=== PATIENT | female | born 1965 | race Caucasian/White ===

== ENCOUNTER → 2019-02-16 | Outpatient (CLI) | payer MEDICAID, SELFPAY ==
--- NOTE | 2019-02-16 09:53 | VDLE_ITS ---
Reason For Study: pain RIGHT LEFT CFV is compressible, spontaneous, phasic, CFV is compressible, spontaneous, phasic, competent and demonstrates normal competent, and demonstrates normal augmentation. augmentation. FV is compressible, spontaneous, phasic, FV is compressible, spontaneous, phasic, competent and demonstrates normal competent and demonstrates normal augmentation. augmentation. POP V is compressible, spontaneous, phasic, POP V is compressible, spontaneous, phasic, competent and demonstrates normal competent and demonstrates normal augmentation. augmentation. T/P Trunk is compressible. T/P Trunk is compressible. PTV is compressible. PTV is compressible. RT PerV is compressible. LT PerV is compressible. SFJ is incopetent. SFJ is competent. GSV is incompetent through out with max GSV is competent throughout. diameter of 0.64 x 0.77cm near the SFJ. SSV appears competent. Rouleaux flow was demonstrated in CFV, SFJ, & Roulleaux flow was demonstrated in the GSV AK. gastrocnemius veins and SSV. SSV is competent. Procedure Exam performed in department. The exam was diagnostic. A preliminary report was called and/or faxed to DR. Jacobson. Interpretation Summary 1. Bilateral no DVT or SVT. 2. Right GSV 7.7mm with reflux 3. Bilateral rouleaux noted. Ordering Physician: Zachariah Jacobson Referring Physician: NO PCP Performed By: Claudia Harvey, ELEAZAR, RVT
== END | disposition home or self-care (01) ==
PROVIDERS: Referring Provider Surgery Vascular Surgery; Visit Provider Surgery Vascular Surgery
DX: M79.89 Other specified soft tissue disorders (principal); I83.893 Varicose veins of bilateral lower extremities with other complications; M79.609 Pain in unspecified limb
CPT/HCPCS: 93970

== ENCOUNTER → 2019-04-09 | Outpatient (CLI) | payer MEDICAID, SELFPAY ==
[2015-05-30 07:56] VITALS: BMI 27.5
--- NOTE | 2019-04-09 12:48 | VDLE_ITS ---
Reason For Study: Varicose veins RIGHT CFV is compressible, spontaneous, phasic, competent and demonstrates normal augmentation. FV is compressible, spontaneous, phasic, competent and demonstrates normal augmentation. POP V is compressible, spontaneous, phasic, competent and demonstrates normal augmentation. T/P Trunk is compressible. PTV is compressible. RT PerV is compressible. SFJ is competent and measures 0.51 x 0.61 cm. GSV above the knee is occluded s/p EVLA. GSV below the knee is INCOMPETENT for greater than 0.5 seconds and measures 0.19 x 0.20 cm. SSV is competent and measures 0.15 x 0.17 cm. Procedure Exam performed in department. Interpretation Summary 1. Righ no DVT and successful GSV evlt. Ordering Physician: Zachariah Jacobson Performed By: Farnaz Andrea RVT
== END | disposition home or self-care (01) ==
LOC: CVS 12:47
PROVIDERS: Referring Provider Surgery Vascular Surgery; Visit Provider Surgery Vascular Surgery
DX: I83.893 Varicose veins of bilateral lower extremities with other complications (principal)
CPT/HCPCS: 93971

== ENCOUNTER 2019-08-26 21:40 | Emergency (ER) | payer MEDICAID, SELFPAY ==
[2019-08-26 21:40] VITALS: BP 158/103; PULSE 98; RESP 18; TEMP 36.6; O2SAT 100; BMI 27.0
--- NOTE | 2019-08-26 21:57 | RAD_ITS ---
STUDY: X-RAY - RIGHT ELBOW REASON FOR EXAM: Female, 54 years old. RIGHT ELBOW PAIN AFTER FALL TECHNIQUE: 3 view(s) of the elbow. COMPARISON: None. FINDINGS: Normal visualized humerus, radius and ulna. Normal radiocapitellar and ulnotrochlear articulations. The soft tissue structures are unremarkable. RAD/Elbow min 3 Views IMPRESSION: Normal x-ray examination of the elbow. Electronically Signed: Tung Lyon MD (Brooks) at 22:21 EST , Service support ,
--- NOTE | 2019-08-26 22:07 | RAD_ITS ---
STUDY: X-RAY CHEST REASON FOR EXAM: Female, 54 years old. CHEST PAIN AFTER FALL TECHNIQUE: PA and lateral views of the chest. COMPARISON: None. FINDINGS: The lungs are clear and expanded. There is no demonstrated pleural abnormality. Normal size heart. Normal mediastinum and marilu. Normal visualized pulmonary arteries. Normal visualized aortic arch and descending thoracic aorta. There are diffuse degenerative changes of the visualized thoracic spine. Normal visualized ribs, clavicles, and shoulders. There is no demonstrated abnormality of the visualized soft tissue structures of the upper abdomen. RAD/Chest PA and Lateral IMPRESSION: No acute cardiopulmonary process. Electronically Signed: Tung Lyon MD (Brooks) at 22:22 EST , Service support ,
--- NOTE | 2019-08-26 22:17 | ED.VIS.INJ ---
History of Present Illness Chief Complaint: Upper Extremity Injury Detail of Chief Complaint: Still complains of chest pain and shortness of breath Informant: Patient Onset: Days - Patient has 2 separate falls from ladder approximately 4 to 5 feet off the ground. First time she fell she injured her right upper extremity complains of pain in the right elbow. She denies pain in her right shoulder, wrist, hand or fingers. She fell a second time injuring her chest/back. She states it hurts to breathe and she feels short of breath. Mechanism/Context: Fall Quality of Pain: Dull, Aching Location: Right elbow and right anterior chest and right upper back Current Severity: Mild Maximum Severity: Moderate Worsened by: Use of upper extremity and breathing Relieved by: Nothing Associated Symptoms: Negative for: Parasthesias, Weakness, Loss of function, Inability to ambulate, Loss of consciousness, Amnesia Length of loss of consciousness: Not applicable Narrative: Patient is a 54-year-old [id number] woman who presents because of fall. She sustained injury to her right elbow and right anterior and right upper back. She denies head trauma. Denies loss conscious. She denies paresthesia, anesthesia or motor weakness. She denies hematuria. She denies difficulty walking. She denies problems with balance. She is not on an anticoagulant. Tetanus Immunization: 5-10 years Prior similar symptoms: No Recent Illness/Hospitalization: No - Past Medical History (1) No significant past medical history Status: Acute Past Medical History - Allergies and Home Meds Allergies/Adverse Reactions: Allergies Penicillins Allergy (Verified 08/26/19 22:24) Hives gabapentin Adverse Reaction (Verified 08/26/19 22:24) Vomiting Primary Care Physician: Care Physician,No Primary [Primary Care Provider] - Prior records reviewed: Yes Surgical History: noncontributory Lives: Alone Smoking Status: Heavy Smoker (>10/day) Alcohol: Rare Drugs: None Review of Systems General: Denies: Chills, Fever, Sweats Eyes: Denies: Visual changes - bilaterally, Blurred Vision - bilaterally ENT: Reports: - - Denies decreased hearing or ringing in her ears.. Denies: Bilateral ear pain, Rhinorrhea, Sore throat Cardiovascular: Reports: Chest pain. Denies: Palpitations, Heart racing Respiratory: Reports: Dyspnea. Denies: Cough, Sputum, Dyspnea on exertion Gastrointestinal: Denies: Abdominal pain, Nausea, Vomiting, Diarrhea, Melena, Hematochezia Genitourinary: Denies: Dysuria, Hematuria, Frequency Musculoskeletal: Reports: Back pain, Extremity Pain. Denies: Myalgias, Arthralgias, Neck pain, Swelling Skin: Denies: Rash, Wounds Neurological: Denies: Headache, Weakness, Parasthesia, Numbness Hematologic: Denies: Easy bruising, Easy bleeding Allergy: Denies: Uticaria, Swelling of the mouth Physical Exam Vital Signs/Narrative: Vital Signs Temp Pulse Resp BP Pulse Ox 08/26/19 21:40 98 F 98 18 158/103 H 100 Inital Vital Signs reviewed: Yes General: Well nourished, Well developed Head: Normocephalic, Atraumatic Eyes: Perrl, EOMI ENT: TM's clear, No hemotympanum or drainage, No trauma Neck: Nontender, Full ROM Cardiovascular: Regular rate, Regular rhythm, No murmurs Respiratory: No distress, CTA bilaterally, Chest tenderness - Pain to palpation right upper ribs anteriorly. There is no crepitus or subcutaneous air. Breath sounds are diminished on the right. Abdomen: Soft, Nontender, Nondistended, Normal bowel sounds, No masses Back: Nontender. Negative for: CVA Tenderness - Right, CVA Tenderness - Left Extremeties: Is no pain the patient over the clavicle or AC joint. There is no pain the patient over the proximal humerus. There is pain the patient over the right elbow and specifically the lateral epicondyle and olecranon process. There is no pain the patient over the radial head. There is no pain the patient of the distal radius ulna, carpal bones, metacarpals or phalanges. Axillary, median, radial and ulnar function intact. Radial pulses palpable. Skin: Normal color, No rash, No Trauma. Negative for: Cyanosis, Diaphoresis, Jaundice Neurological: Alert, Oriented x3, Cranial nerves II-XII grossly intact, Normal Strength, Normal Sensation, Normal DTR, Normal Gait Psychological: Normal affect - Glascow Coma Scale Eye Opening: Spontaneous Motor: Obeys Commands Verbal: Oriented Coma Scale Total: 15 Diagnostic/Tx/Re-eval Chest X-Ray - ED: 2 View, Read by ED Physician, Normal, Heart, Lungs, Mediastinum, Bony Structures, No Acute Disease, - - No evidence of pneumothorax or hemothorax. Three-view x-ray of the right elbow was obtained interpreted by me as negative. There is no fracture, subluxation dislocation. There is no anterior posterior fat pad noted. - Medical Decision Making X-rays were obtained to evaluate for elbow fracture and chest x-ray was obtained to assess for pneumothorax, hemothorax and obvious fractured ribs. X-rays are unremarkable. Should be treated with NSAIDs. ED Disposition - Plan for ED Patient: Disposition: Home or Assisted Living Diagnosis: Contusion of left elbow, initial encounter, Contusion of chest wall with intact skin Instructions: CONTUSION, Upper Extremity, Chest Wall Contusion Prescriptions: Naproxen [Naprosyn] 500 mg PO BID #14 tab Transmission Status: Pending to [facility] Referrals: Care Physician,No Primary [Primary Care Provider] - 1 Week if not improving Additional Instructions: Follow-up with the doctor or primary care provider you are assigned to by Medicaid. Apply ice to areas of discomfort.
[2019-08-26] MEDS: Naproxen 500 MG Tablet PO (22:38)
[2019-08-26 22:42] VITALS: BP 148/102; PULSE 91; RESP 16; O2SAT 97
== END 2019-08-26 22:43 | disposition home or self-care (01) ==
PROVIDERS: Emergency Provider Emergency Medicine
DX: S50.01XA Contusion of right elbow, initial encounter (principal); S20.211A Contusion of right front wall of thorax, initial encounter; W11.XXXA Fall on and from ladder, initial encounter; Y93.9 Activity, unspecified; F17.200 Nicotine dependence, unspecified, uncomplicated
CPT/HCPCS: 71046; 73080; 99282

== ENCOUNTER → 2020-04-07 17:48 | Outpatient (CLI) | payer MEDICAID, SELFPAY | DX: Z20.828 Contact with and (suspected) exposure to other viral communicable diseases (principal) | CPT/HCPCS: 87635; 94799; U0003 ==

== ENCOUNTER 2021-09-18 06:48 | Emergency (ER) | payer MEDICAID, SELFPAY ==
[2021-09-18 06:49] VITALS: PULSE 119; RESP 18; TEMP 36.1; O2SAT 98; BMI 28.5
--- NOTE | 2021-09-18 06:51 | RAD_ITS ---
STUDY: X-RAY - RIGHT ELBOW REASON FOR EXAM: Female, 56 years old. Injury/Pain TECHNIQUE: 3 view(s) of the elbow. COMPARISON: 08/26/2019 FINDINGS: Normal visualized humerus, radius and ulna. Normal radiocapitellar and ulnotrochlear articulations. The soft tissue structures are unremarkable. RAD/Elbow min 3 Views IMPRESSION: Negative x-ray examination of the elbow. No interval change. Electronically Signed: Matt Salazar MD at 7:28 EST Tel , Service support ,
--- NOTE | 2021-09-18 06:52 | EX.ED.UPPERE ---
HPI History of Present Illness Chief Complaint: Upper Extremity Injury Informant: patient Onset/Context/Timing Onset: Days Context: Sudden Onset Timing: Continuous Quality of Pain: Dull and Aching Location: Right elbow Current Severity: Mild Maximum Severity: Severe Worsened by: Movement and palpation Relieved by: Rest Associated Symptoms Associated Symptoms: Negative for Parasthesia, Weakness and Loss of Funtion Narrative Narrative: Patient is a 56-year-old [id number] woman who presents with injury to her right elbow after fall. She landed on the elbow. She localizes pain over the lateral epicondyle. There is also soft tissue swelling noted. She denies paresthesia, anesthesia or motor weakness. She denies prior injury to the right elbow or shoulder. Patient appears slightly uncomfortable. She is noted to be slightly sweaty. She states she walked to the ER. Tetanus Immunization: >10 years Prior similar symptoms: No Recent Illness/Hospitalization: No PFSH PFS Medical History Colitis Health care maintenance Hypertension Tobacco abuse counseling Home Medications cyclobenzaprine 10 mg tablet 10 mg PO HS 06/20/21 [History Last Taken Unknown] naproxen 500 mg PO BID #10 tab 09/18/21 [Rx Last Taken Unknown] Allergy/AdvReac Type Severity Reaction Status Date / Time Penicillins Allergy Hives Verified 09/18/21 06:54 gabapentin AdvReac Vomiting Verified 09/18/21 06:54 Surgical History History of back surgery Social History (Updated 09/18/21 @ 06:[address] Claus Lange MD) household members: none Smoking Status: Heavy Smoker (>10/day) substance use type: does not use ROS ROS ED Constitutional Constitutional ED: Denies chills, fever(s), subjective or sweats Eyes Eyes: Denies blurry vision, change in vision or diplopia Cardiovascular Cardiovascular: Denies chest pain, orthopnea, palpitations or paroxysmal nocturnal dyspnea Respiratory/Chest Respiratory/Chest: Denies dyspnea, dyspnea on exertion, orthopnea or paroxysmal nocturnal dyspnea Gastrointestinal Gastrointestinal: Denies abdominal pain, nausea or vomiting Musculoskeletal Musculoskeletal: Reports other Details: Right elbow pain ; Denies back pain, myalgias or neck pain Integumentary Denies Abrasions or rash Neurologic Neurologic: Denies paresthesias Hematologic/Lymphatic Hematologic/Lymphatic: Denies easy bleeding or easy bruising EXAM Physical Exam Const Vital Signs: 09/18/21 06:49 Temperature 97.0 F L Temperature Source Temporal Pulse Rate 119 H Respiratory Rate 18 Pulse Ox 98 Oxygen Delivery Method Room Air Positive well nourished and well developed General Appearance ED: well developed; Negative for cyanotic, diaphoretic or NAD HEENT HEENT Narrative: Ears normal. Nares patent. normocephalic and atraumatic; Negative for tenderness Eyes PERRL and EOMs intact bilaterally Eyes Narrative: There is no subconjunctival hemorrhage noted. Neck full ROM and supple General: tenderness Chest Wall inspection of chest normal and palpation of chest normal Chest Narrative: There is no pain the patient over the clavicle or AC joint. Patient complains of minimal discomfort over the proximal right arm. Resp normal respiratory effort and clear to auscultation bilaterally Cardio regular rate, regular rhythm, S1 normal heart sound, S2 normal heart sound and no murmurs Back/Spine Cervical Spine: cervical spine tenderness Thoracic Spine / Upper Back: thoracic spinal tenderness Extremity Negative for normal to inspection Extremity Narrative: Patient is able to AB duct past 90 degrees. Axillary, median, radial and ulnar function intact. There is pain ovation over the lateral epicondyle. There is no pain ovation of the radial head. There is no pain the patient over the lateral epicondyle. She has no discomfort over the olecranon process. There is no pain the patient over the distal radius or ulna. There is no pain the patient with carpal bones, metacarpal bones or phalanges. Negative drop test. General Extremety ED: Negative for edema General Extremity: Negative for edema Neuro oriented x3, CN's II-XII intact bilaterally and moves all extremities Sensorium / Orientation: alert Psych mental status grossly normal Skin Lesions: no lesions Rashes: no rashes Trauma: no lacerations or abrasions; Negative for abrasion MDM MDM MDM Narrative Medical decision making narrative: With pain to palpation over the lateral epicondyle Limited range of motion in swelling noted x-ray was obtained to evaluate for contusion versus fracture. Three-view x-ray of the elbow reveals no evidence of fracture. There is mild degenerative changes with osteophytes noted lateral and medial epicondyle. Negative anterior and posterior fat pad. The x-rays were interpreted by me at 0713. Discharge Plan Triage Chief Complaint: Upper Extremity Injury ED Provider: Claus Lange Dx/Rx/DC Orders Clinical Impression: Injury due to fall, Contusion of right elbow, initial encounter Instructions: ED Contusion, Elbow Prescriptions: New naproxen 500 MG tablet 500 mg PO BID Qty: 10 RF: 0 No Action cyclobenzaprine 10 mg tablet 10 mg PO HS RF: 0 Primary Care Provider: Care Physician,No Primary Referrals: Care Physician,No Primary [Primary Care Provider] - Doctor,Your [STAFF PHYSICIAN] - 10-14 Days if not better Disposition Disposition: Home, Self Care
[2021-09-18 06:53] VITALS: BP 115/95
[2021-09-18] MEDS: HYDROcodone Bitartrate/Apap 5/325 Tablet PO (06:55)
[2021-09-18] MEDS: Naproxen 250 MG Tablet 500 MG PO (07:32)
[2021-09-18 07:35] VITALS: PULSE 108; RESP 17; O2SAT 98
== END 2021-09-18 07:36 | disposition home or self-care (01) ==
LOC: ED 07:19
PROVIDERS: Emergency Provider Emergency Medicine; Visit Provider Emergency Medicine
DX: S50.01XA Contusion of right elbow, initial encounter (principal); W19.XXXA Unspecified fall, initial encounter; F17.200 Nicotine dependence, unspecified, uncomplicated; I10 Essential (primary) hypertension; Z79.899 Other long term (current) drug therapy; Y93.9 Activity, unspecified; Y92.9 Unspecified place or not applicable
CPT/HCPCS: 73080; 99283

== ENCOUNTER 2021-10-16 16:34 | Outpatient (CLI) | payer MEDICAID, SELFPAY ==
[2021-10-16 17:13] LABS: Amphetamine Urine VISTA NEGATIVE (<1000 ng/mL); Barbiturate Urine VISTA NEGATIVE (< 200 ng/mL); Benzodiazepine Urine VISTA NEGATIVE (< 200 ng/mL); Cocaine Urine VISTA NEGATIVE (< 300 ng/mL); Ecstacy Urine VISTA NEGATIVE (< 500 ng/mL); Methadone Urine VISTA NEGATIVE (< 300 ng/mL); PCP Urine VISTA NEGATIVE (< 25 ng/mL); THC Urine VISTA NEGATIVE (< 50 ng/mL); Vista UDS pH Range 6
== END 2021-10-16 23:59 | disposition home or self-care (01) ==
LOC: LABSPEC 16:35 → LAB 10-17 06:57
PROVIDERS: Referring Provider Anesthesiology Pain Medicine; Visit Provider Anesthesiology Pain Medicine
DX: F11.20 Opioid dependence, uncomplicated (principal)
CPT/HCPCS: 80307

== ENCOUNTER 2021-10-30 07:30 | Outpatient (CLI) | payer MEDICAID, SELFPAY ==
--- NOTE | 2021-10-30 08:47 | NEURO_ITS ---
NCS and/or EMG Patient Report Ordering Doctor: Sammy Bowie DATE OF SERVICE: 10/30/21 Indication: Right sided neck and shoulder pain. Constant aching quality with superimposed, intermittent shooting pain. Symptoms were exacerbated by a fall onto the right elbow in September of this year. Evaluate for cervical radiculopathy. Findings: Nerve conduction studies were performed in the right upper extremity. The right median motor study recording the abductor pollicis brevis showed a normal amplitude, mildly prolonged distal latency and normal conduction velocity. The right ulnar motor study recording the abductor digiti minimi showed a normal amplitude, normal distal latency and normal conduction velocity. No conduction block or focal slowing was present across the elbow. The right median sensory response recording digit two showed a borderline amplitude, normal latency and normal conduction velocity. The right ulnar sensory response recording digit five showed a normal amplitude, latency and conduction velocity. The right radial sensory response recording over the extensor snuff box showed a normal amplitude, latency and conduction velocity. Right median-ulnar lumbrical / interosseous motor latencies showed a prolonged median latency compared to the ulnar. Needle EMG of the right upper extremity and cervical paraspinal muscles was performed. No active denervation was present in any of the examined muscles. Motor units were large amplitude and long duration with normal recruitment in th e triceps and flexor carpi radialis muscles. In the abductor pollicis brevis, mild polyphasia was present, but the motor units were otherwise unremarkable. All other muscles demonstrated normal motor unit morphology, activation and recruitment patterns. Impression: This is an abnormal study. There is electrophysiologic evidence consistent with a chronic, right C7 radiculopathy. There is no active denervation to suggest ongoing motor axon loss. In addition, there was mild slowing of the median nerve across the wrist. This should be interpreted with caution as these findings can persist even after adequate decompression of the carpal tunnel. Clinical correlation for symptoms of persistent median nerve entrapment is recommended. Matt Rubin D.O. Multi Select Codes Neurology Neurology Interp Codes: 79367-35 Musc test done w/n test comp (interp) and 41975-94 Nrv cndj test 7-8 studies (interp)
== END 2021-10-30 23:59 | disposition home or self-care (01) ==
LOC: PSN 07:33
PROVIDERS: PCP Internal Medicine; Referring Provider Orthopaedic Surgery; Visit Provider Orthopaedic Surgery
DX: M48.02 Spinal stenosis, cervical region (principal); M47.26 Other spondylosis with radiculopathy, lumbar region
CPT/HCPCS: 95886; 95910

== ENCOUNTER 2021-11-13 17:26 | Emergency (ER) | payer MEDICAID, SELFPAY ==
[2021-11-13 17:27] VITALS: BP 163/94; PULSE 101; RESP 16; TEMP 36.3; O2SAT 98; BMI 29.2
--- NOTE | 2021-11-13 17:37 | EDS_ITS ---
HPI History of Present Illness Chief Complaint: Laceration Informant: patient Narrative Narrative: Patient had a branch fall down and cut her dorsal right proximal forearm. No active bleeding. Her last tetanus shot was 1 to 2 years ago. It does not hurt to move. No other injury. Nothing really makes it better or worse. [facility] Medical History Colitis Health care maintenance Hypertension Tobacco abuse counseling Home Medications cyclobenzaprine 10 mg tablet 10 mg PO HS 06/20/21 [History Last Taken Unknown] naproxen 500 mg PO BID #10 tab 09/18/21 [Rx Last Taken Unknown] Allergy/AdvReac Type Severity Reaction Status Date / Time Penicillins Allergy Hives Verified 11/13/21 17:28 gabapentin AdvReac Vomiting Verified 11/13/21 17:28 Surgical History History of back surgery Social History household members: none Smoking Status: Heavy Smoker (>10/day) substance use type: does not use ROS ROS ED Cardiovascular Cardiovascular: Denies chest pain or palpitations Gastrointestinal Gastrointestinal: Denies nausea or vomiting Musculoskeletal Musculoskeletal: Reports other Details: See history of present illness ; Denies back pain or neck pain Integumentary Reports other Details: Laceration right forearm. See history of present illness. Neurologic Neurologic: Denies paresthesias or weakness Hematologic/Lymphatic Hematologic/Lymphatic: Reports other Details: No anticoagulation. ; Denies easy bleeding or easy bruising EXAM Physical Exam Const Vital Signs: 11/13/21 17:27 Temperature 97.4 F L Temperature Source Temporal Pulse Rate 101 H Respiratory Rate 16 Blood Pressure 163/94 H Blood Pressure Mean 117 Pulse Ox 98 Oxygen Delivery Method Room Air Positive well nourished and well developed General Appearance ED: well developed and NAD HEENT atraumatic Resp normal respiratory effort Cardio regular rhythm Rate: regular rate GI normal to inspection, nondistended, normoactive bowel sounds and non-tender Palpation: soft Extremity Extremity Narrative: There is a 3 cm laceration on dorsal right proximal forearm. No active bleeding. She has excellent strength both [employer] strength as well as finger extension and wrist flexion extension distally. She states she has some nerve damage in that arm already but is not showing any signs of notable dysfunction on exam. Neuro no focal motor deficits and no sensory deficits noted Sensorium / Orientation: alert Skin Skin Narrative: 3 cm laceration right dorsal forearm as above. PROC Procedures Lacerations Right dorsal forearm: Length: 3 m Depth: Sub Q Shape: Flap Prep: Sterile Conditions and Shure-Clens Laceration repair: Irrigated, Lidocaine, Local, Skin sutures and Wound explored Irrigated (ml): 150 Number of Sutures/[place]: 4 Suture Information: Ethilon and 4-0 MDM MDM MDM Narrative Medical decision making narrative: Procedure: Suture laceration: The area was sterilely prepped draped. It was anesthetized with 6 cc of 1% lidocaine locally with good anesthesia. The area was scrubbed again with Mitzi- Jean all around and draped. The wound was scrubbed and irrigated. It was probed with finger and instruments. I find no foreign material in there. It was copiously irrigated again. It was then sutured with good cosmesis and hemostasis with 4 interrupted 4-0 Ethilon sutures. She tolerated this well. We explained reasons to return as well as timing for suture removal. Discharge Plan Triage Chief Complaint: Laceration ED Provider: Marc Giron Dx/Rx/DC Orders Clinical Impression: Laceration of forearm, right Instructions: ED Laceration: All Closures Prescriptions: No Action cyclobenzaprine 10 mg tablet 10 mg PO HS RF: 0 naproxen 500 MG tablet 500 mg PO BID Qty: 10 RF: 0 Primary Care Provider: Feliciano Jacobson Referrals: Felicaino Jacobson MD [Primary Care Provider] - 10-14 Days suture removal Disposition Disposition: Home, Self Care
[2021-11-13] MEDS: Lidocaine 1% (20 ml mdv) 20 ML Vial INFILT (17:46)
== END 2021-11-13 18:18 | disposition home or self-care (01) ==
PROVIDERS: Emergency Provider Emergency Medicine; PCP Internal Medicine; Visit Provider Emergency Medicine
DX: S51.811A Laceration without foreign body of right forearm, initial encounter (principal); F17.200 Nicotine dependence, unspecified, uncomplicated; X58.XXXA Exposure to other specified factors, initial encounter
CPT/HCPCS: 12002; 99283

== ENCOUNTER 2021-11-20 15:58 | Outpatient (CLI) | payer MEDICAID, SELFPAY ==
[2021-11-20 16:32] LABS: Absolute Lymphocyte Count 2.18 X10^3/uL (0.83-4.51); Absolute Neutrophil Count 2.2 X10^3/uL (2.0-7.7); Basophil# 0.03 X10^3/uL; Basophil% 0.6 % (0-1); Eosinophil# 0.27 X10^3/uL; Eosinophils% 5.3 % (0-5); Hematocrit 39.3 % (37-47); Hemoglobin 12.9 g/dL (12.0-15.0); Lymphocyte # 2.18 X10^3/ul (0.83-4.51); Lymphocyte % 42.7 % (19-41); Mean Corp Hgb Conc 32.8 g/dL (32-36); Mean Corpuscular Hgb 31.3 pg (27.0-32.0); Mean Corpuscular Volume 95.4 fL (81-99); Mean Platelet Vol. 10.2 fl (6.2-12.0); Monocyte# 0.38 X10^3/uL; Monocyte% 7.5 % (0-10); NRBC Flagged by Analyzer 0 % (0-5); Neutrophil # 2.23 X10^3/uL (2.7-7.7); Neutrophil % 43.7 % (47-70); Platelet Count 204 K/mm3 (150-450); RBC Distribution Width CV 12.9 % (11.6-14.6); RBC Distribution Width SD 45.6 fl (35.1-43.9); Red Blood Count 4.12 M/mm3 (4.2-5.4); White Blood Count 5.1 K/mm3 (4.4-11.0)
[2021-11-20 16:42] LABS: ALB/GLOB Ratio 1.1 RATIO (0.9-2.4); AST(SGOT) 18 U/L (15-37); Alanine Aminotransfer ALT/SGPT 28 U/L (13-56); Alkaline Phosphatase 90 U/L (45-117); Anion Gap 4 (5-15); BUN 17 mg/dL (7-18); BUN/Creat Ratio 19.1 RATIO (10-20); Calcium,Total 9.1 mg/dL (8.5-10.1); Chloride 105 mmol/L (98-107); Cholesterol 211 mg/dL (200); Creatinine, Serum 0.89 mg/dL (0.55-1.02); EST Glomerular Filtration Rate 70 mL/min (>60); Est Glom Filt Rate - Afr Amer 84 mL/min (>60); Globulin 3.5 g/dL (2.2-4.2); Glucose 94 mg/dL (74-106); High Density Lipoprotein 61 mg/dL; Potassium 3.9 mmol/L (3.5-5.1); Protein, Total 7.5 g/dL (6.4-8.2); Sodium Level 138 mmol/L (136-145); Triglycerides 190 mg/dL; Very Low Density Lipoprotein 38 mg/dL (5-40)
== END 2021-11-20 23:59 | disposition home or self-care (01) ==
LOC: BIMLAB 15:59
PROVIDERS: PCP Internal Medicine; Referring Provider Internal Medicine; Visit Provider Internal Medicine
DX: I10 Essential (primary) hypertension (principal)
CPT/HCPCS: 36415; 80053; 80061; 85025

== ENCOUNTER 2022-03-04 00:12 | Emergency (ER) | payer MEDICAID, SELFPAY ==
[2022-03-04 00:13] VITALS: BP 141/83; PULSE 103; RESP 20; TEMP 36.4; O2SAT 98; BMI 28.8
[2022-03-04] MEDS: Doxycycline 100 MG CAPSULE PO (00:57)
[2022-03-04] MEDS: Nystatin Powder 15gm Bottle 1 APPLIC TOPICAL (00:57)
--- NOTE | 2022-03-04 01:28 | EDS_ITS ---
HPI History of Present Illness Chief Complaint: Rash Narrative Narrative: This is a 56-year-old female presenting with rash under her bilateral breasts. She states has been there for couple of days. She spent a lot of time outside gardening over the last couple of days and states he has been hot and sweaty. She is noticed that the rash is worsening. She tried a salve which did not help. She is noticed that the redness is spreading up from the intertriginous areas up over the bottom portion of the breast. No systemic signs or symptoms. [facility] Medical History Chronic back pain Colitis Health care maintenance Hypertension Right hip pain Tobacco abuse counseling Home Medications ibuprofen 600 mg tablet 600 mg PO TID PRN pain #180 tabs 11/20/21 [Rx Last Taken Unknown] amlodipine 10 mg tablet 10 mg PO DAILY #30 tabs 12/27/21 [Rx Last Taken Unknown] acetaminophen 500 mg tablet 1,000 mg PO Q8H PRN pain 03/04/22 [History Last Taken Unknown] cyclobenzaprine 10 mg tablet 10 mg PO QHS sleep 03/04/22 [History Last Taken Unknown] doxycycline hyclate 100 mg capsule 100 mg PO BID #13 caps 03/04/22 [Rx Last Taken Unknown] nystatin 100,000 unit/gram topical powder 1 applic topical DAILY #30 grams 03/04/22 [Rx Last Taken Unknown] Allergy/AdvReac Type Severity Reaction Status Date / Time Penicillins Allergy Hives Verified 11/20/21 15:23 gabapentin AdvReac Vomiting Verified 11/20/21 15:23 Surgical History History of back surgery Social History household members: none Smoking Status: Heavy Smoker (>10/day) substance use type: does not use ROS ROS ED Constitutional Constitutional ED: Denies chills or fever(s) Eyes Eyes: Denies change in vision ENT ENT ED: Denies rhinorrhea or sore throat Cardiovascular Cardiovascular: Denies chest pain or palpitations Respiratory/Chest Respiratory/Chest: Denies cough or dyspnea Gastrointestinal Gastrointestinal: Denies abdominal pain or constipation Genitourinary Genitourinary ED: Denies dysuria or hematuria Musculoskeletal Musculoskeletal: Denies arthralgias or back pain Integumentary Reports rash Neurologic Neurologic: Denies headache(s) Psychiatric Psychiatric: Denies anxiety or depression EXAM Physical Exam Const Vital Signs: 03/04/22 00:13 Temperature 97.6 F L Temperature Source Oral Pulse Rate 103 H Respiratory Rate 20 H Blood Pressure 141/83 H Blood Pressure Mean 102 Pulse Ox 98 Oxygen Delivery Method Room Air Positive well nourished General Appearance ED: NAD HEENT Reports moist mucous membranes Eyes PERRL Chest Wall Chest Narrative: Under the bilateral breast there is erythema in the intertriginous areas. There is some redness that extends up the underside of the breast almost to the areola. No crepitance is palpated. Resp normal respiratory effort Cardio regular rate and regular rhythm Psych mental status grossly normal Skin Skin Narrative: As documented above. MDM MDM MDM Narrative Medical decision making narrative: Patient with erythema in the intertriginous areas after being outside in the heat and sweating for the last couple of days. I believe this is can be successfully treated with nystatin cream for the most part in intertriginous areas but because the redness is extending up over the underside of the breast and near the areola I did put her on an antibiotic as well to cover her for cellulitis. Patient was given the first dose of doxycycline in the ED. He is given wound care instructions verbally. Return precautions discussed. Impression: 1. Cellulitis Discharge Plan Triage Chief Complaint: Rash ED Provider: Donta Velarde Dx/Rx/DC Orders Instructions: ED Ceci Skin Infection (Adult), ED Cellulitis Prescriptions: New doxycycline hyclate 100 mg capsule 100 mg PO BID Qty: 13 0RF nystatin 100,000 unit/gram powder 1 applic topical DAILY Qty: 30 0RF No Action ibuprofen 600 mg tablet 600 mg PO TID PRN (Reason: pain) Qty: 180 2RF Rx Instructions: Take with food and lots of water cyclobenzaprine 10 mg tablet 10 mg PO QHS acetaminophen 500 mg tablet 1,000 mg PO Q8H PRN (Reason: pain) amlodipine 10 mg tablet 10 mg PO DAILY Qty: 30 3RF Primary Care Provider: Feliciano Jacobson Referrals: Feliciano Jacobson MD [Primary Care Provider] - Disposition Disposition: Home, Self Care Discharge Date/Time: 03/04/22 01:01
== END 2022-03-04 01:01 | disposition home or self-care (01) ==
PROVIDERS: Emergency Provider Student in an Organized Health Care Education/Training Program; PCP Internal Medicine; Visit Provider Student in an Organized Health Care Education/Training Program
DX: N61.0 Mastitis without abscess (principal); R21 Rash and other nonspecific skin eruption; F17.200 Nicotine dependence, unspecified, uncomplicated; Z79.899 Other long term (current) drug therapy
CPT/HCPCS: 99283

== ENCOUNTER 2022-05-12 01:11 | Emergency (ER) | payer MEDICAID, SELFPAY ==
[2022-05-12 01:13] VITALS: BP 136/88; PULSE 107; RESP 20; TEMP 36.6; O2SAT 98; BMI 28.8
--- NOTE | 2022-05-12 01:39 | EDS_ITS ---
HPI History of Present Illness Chief Complaint: Lower Extremity Injury Informant: patient Onset/Context/Timing Onset: Days (6) Context: Gradual Onset Timing: Continuous Quality: swelling, soreness, tingling Location: both lower legs Current Severity: Moderate Maximum Severity: Moderate Worsened by: walking/being on feet Relieved by: nothing Narrative Narrative: Patient presents Saturday night 1:30 AM for swelling in both legs for the past 6 days. She denies any recent travel out of the area, immobilization, hospitalization, or surgery. She has been urinating normally. She does not have a history of kidney or liver problems. She has some chronic back issues that required surgery for ruptured disc, she denies any new or acute symptoms there. She does have peripheral neuropathy that is chronic, and fibromyalgia. She states that her legs been swollen they become a little more sore than usual and she points to the calves bilaterally and was concerned maybe she has blood clots. She has never had a DVT or PE before. She denies any orthopnea, dyspnea on exertion, palpitations, chest pain, or any other systemic symptoms. [facility] Medical History Cervical radiculopathy Chronic back pain Chronic neck pain Colitis Health care maintenance Hypertension Right hip pain Tobacco abuse counseling Home Medications acetaminophen 500 mg tablet 1,000 mg PO Q8H PRN pain 03/04/22 [History Last Taken Unknown] cyclobenzaprine 10 mg tablet 10 mg PO QHS PRN muscle spasm #60 tabs 04/20/22 [Rx Last Taken Unknown] ibuprofen 600 mg tablet 600 mg PO TID PRN pain #180 tabs 04/20/22 [Rx Last Taken Unknown] lisinopril 20 mg tablet 20 mg PO DAILY #30 tabs 05/12/22 [Rx Last Taken Unknown] Allergy/AdvReac Type Severity Reaction Status Date / Time Penicillins Allergy Hives Verified 05/12/22 01:13 gabapentin AdvReac Vomiting Verified 05/12/22 01:13 Surgical History History of back surgery Social History household members: none Smoking Status: Heavy Smoker (>10/day) alcohol intake: current alcohol intake frequency: holidays/special occasions only substance use type: does not use ROS ROS ED Constitutional Constitutional ED: Denies chills or fever(s) Eyes Eyes: Denies change in vision or diplopia ENT ENT ED: Denies rhinorrhea or sore throat Cardiovascular Cardiovascular: Reports edema; Denies chest pain or palpitations Respiratory/Chest Respiratory/Chest: Denies cough or dyspnea Gastrointestinal Gastrointestinal: Denies abdominal pain, diarrhea, nausea or vomiting Genitourinary Genitourinary ED: Denies dysuria or hematuria Musculoskeletal Musculoskeletal: Denies back pain or neck pain Integumentary Denies abscess or rash Neurologic Neurologic: Denies headache(s), paresthesias or weakness Psychiatric Psychiatric: Denies anxiety or suicidal thoughts EXAM Physical Exam Const Vital Signs: 05/12/22 01:13 Temperature 97.8 F Temperature Source Temporal Pulse Rate 107 H Respiratory Rate 20 H Blood Pressure 136/88 H Blood Pressure Mean 104 Pulse Ox 98 Oxygen Delivery Method Room Air Positive well nourished and well developed General Appearance ED: well developed and NAD HEENT Reports moist mucous membranes normocephalic and atraumatic Eyes PERRL and EOMs intact bilaterally Neck full ROM and supple Resp normal respiratory effort Back/Spine no CVA tenderness General Back: other FROM Extremity normal to inspection Extremity Narrative: Mild nonpitting edema, if present at all; difficult to appreciate. Couple venous varicosities superficially that are nontender and nonthrombosed. General Extremety ED: Negative for pulses abnormal or tenderness General Extremity: Negative for pulses abnormal Neuro oriented x3, CN's II-XII intact bilaterally and no sensory deficits noted Sensorium / Orientation: awake and alert Motor Exam: strength 5/5 throughout Psych mental status grossly normal Skin no rashes or lesions noted and no wounds MDM MDM MDM Narrative Medical decision making narrative: Negative Homans bilaterally, no palpable cords or calf tenderness, she states they appear swollen compared to normal although it is difficult to appreciate objectively which I discussed with her and she understands. She is on amlodipine for blood pressure and states she has only been on that for the past 6 months and she needed the surgery in her lumbar spine. Since this could cause edema in her legs and she is on her feet a lot, I think it would be reasonable to discontinue this and replace it with lisinopril for now, her blood pressure is stable here, I will discharge her on 20 mg lisinopril and have her follow-up, if things get worse despite this she is welcome to return for reevaluation or further testing but she is comfortable with that plan. I do not think she needs testing for DVT since it is bilaterally simultaneously and she has no risk factors. Discharge Plan Triage Chief Complaint: Lower Extremity Injury ED Provider: Viral Ackerman Dx/Rx/DC Orders Clinical Impression: Bilateral edema of lower extremity Instructions: ED Peripheral Edema, Bilateral Prescriptions: New lisinopril 20 mg tablet 20 mg PO DAILY Qty: 30 0RF Continued acetaminophen 500 mg tablet 1,000 mg PO Q8H PRN (Reason: pain) cyclobenzaprine 10 mg tablet 10 mg PO QHS PRN (Reason: muscle spasm) Qty: 60 0RF ibuprofen 600 mg tablet 600 mg PO TID PRN (Reason: pain) Qty: 180 0RF Rx Instructions: Take with food and lots of water Discontinued amlodipine 10 mg tablet 10 mg PO DAILY Qty: 30 0RF Primary Care Provider: Feliciano Jacobson Referrals: Feliciano Jacobson MD [Primary Care Provider] - Disposition Disposition: Home, Self Care
== END 2022-05-12 01:50 | disposition home or self-care (01) ==
LOC: ED 01:48
PROVIDERS: Emergency Provider Emergency Medicine; PCP Internal Medicine; Visit Provider Emergency Medicine
DX: R60.0 Localized edema (principal); F17.200 Nicotine dependence, unspecified, uncomplicated; Z79.899 Other long term (current) drug therapy
CPT/HCPCS: 99282

== ENCOUNTER 2023-07-17 18:04 | Emergency (ER) | payer MEDICAID, SELFPAY ==
[2023-07-17 18:06] VITALS: BP 145/93; PULSE 99; RESP 22; TEMP 36.4; O2SAT 99
--- NOTE | 2023-07-17 18:40 | RAD_ITS ---
STUDY: X-RAY - RIGHT TIBIA AND FIBULA REASON FOR EXAM: Female, 58 years old. calf/kay pain TECHNIQUE: 2 view(s) of the tibia and fibula were obtained. COMPARISON: None. FINDINGS: Normal visualized tibia. Normal visualized fibula. The soft tissue structures are unremarkable. RAD/Tibia & Fibula 2 Views IMPRESSION: Normal x-ray examination of the tibia and fibula. Electronically Signed: Sammy Couch MD at 19:01 EST ,
--- NOTE | 2023-07-17 19:05 | ED.RN ---
Pt asks this RN for pain medicine while waiting in triage area for ED room availability. This RN explained pain meds couldn't be given until MD ordered which typically didn't happen until evaluated by MD. Pt had normal xrays with no fractures noted. Pt becomes angry, cursing and yelling loudly. This RN asks pt to keep language appropriate as she was surrounded by other pt's who were alss waiting for ED rooms. This RN offered emotional support, explained she would be roomed as soon as there was availability. supervisor packing aware.
== END 2023-07-17 19:20 | disposition left against medical advice (07) ==
LOC: ED 19:23
PROVIDERS: Emergency Provider Emergency Medicine; PCP Internal Medicine; Visit Provider Emergency Medicine
DX: Z53.21 Procedure and treatment not carried out due to patient leaving prior to being seen by health care provider (principal)
CPT/HCPCS: 73590

== ENCOUNTER → 2025-08-03 | Outpatient (CLI) | payer MEDICARE, SELFPAY ==
--- NOTE | 2025-08-03 06:51 | MRI_ITS ---
PROCEDURE: SPINE LUMBAR W/WO CONTRAST 08/03/2025 REASON FOR EXAM: WORSENING PAIN X3 YEARS,L4-5 SPONDY UNSTABLE, LEFT TECHNIQUE: Procedure Code: [id number] Modality: MR Procedure: SPINE LUMBAR W/WO CONTRAST Multiplanar and multisequence images were obtained without and with intravenous gadolinium-based contrast administration. CONTRAST: Clariscan VOLUME: 15 mL COMPARISON: None available. FINDINGS: For the purposes of this report, the most caudal rectangular vertebral body will be designated L5. The next most caudal trapezoidal shaped vertebral body will be designated S1. The intervening disc at the lumbosacral angle is designated L5-S1. The normal lumbar lordosis is maintained. The lumbar vertebral bodies are normal in height. Grade 1 L4-L5 anterolisthesis. The lumbar bone marrow signal is within normal limits. There is no focal enhancing and marrow replacing lesion in the lumbar spine. There is no evidence of signal abnormality in the imaged distal spinal cord or abnormal enhancement within the lumbar spinal canal. Multilevel disc desiccation. The conus medullaris terminates at the level of L1. T12-L1: No high-grade spinal canal or neural foraminal stenosis. L1-L2: No significant spinal canal stenosis or neural foraminal narrowing. L2-L3: Disc bulge, bilateral facet arthrosis, and ligamentum flavum hypertrophy all contribute to moderate spinal canal stenosis and subarticular zone narrowing. There is crowding of the descending nerve roots. Mild bilateral neural foraminal narrowing. L3-L4: Disc bulge flattens the ventral thecal sac. No significant spinal canal stenosis. Bilateral facet arthrosis and ligamentum flavum hypertrophy. Mild bilateral neural foraminal narrowing. L4-L5: Uncovering of the disc, bilateral facet arthrosis with facet joint effusions, ligamentum flavum hypertrophy. Mild spinal canal stenosis. Severe bilateral neural foraminal narrowing. Type 2 Modic endplate changes at the anterior-most aspect of the endplates. L5-S1: Disc bulge, bilateral facet arthrosis, ligamentum flavum hypertrophy. Mild spinal canal stenosis. Moderate right and mild left neural foraminal narrowing. Partially visualized left renal cyst. MRI/Spine Lumbar W/WO Contrast IMPRESSION: Lumbar spondylosis most marked at L4-L5 where there is severe bilateral neural foraminal stenosis. At L2-L3, there is moderate spinal canal stenosis. No enhancing lesion in the lumbar spine. Grade 1 L4-L5 anterolisthesis. Additional findings as discussed above. Reading Location: [facility]
--- OUTSIDE RECORDS SUMMARY | 2025-08-03 06:58 | XMS RPT_ITS | CCD ---
Author Organization [facility] Care Team Providers Care Print Production Coordinator Name Role Phone Dr. Feliciano Jacobson Primary Care Provider [phone] Dr. Feliciano Jacobson Attending Provider [phone] Dr. Feliciano Jacobson Referring Provider [phone] Unavailable Primary Care Provider FELICIANO Gamino MD Primary Care Physician [phone] Dr. Feliciano Jacobson Primary Care Provider [phone] Dr. Feliciano Jacobson Attending Provider [phone] Dr. Feliciano Jacobson Referring Provider [phone] Unavailable Primary Care Provider Raymond Gaitan Attending Unavailable Feliciano Jacobson Primary Care Unavailable LIZETTE VARELA MD Attending Unavailable FELICIANO JACOBSON MD Primary Care Unavailab suraj Unavailable Primary Care Provider Gaetano amanda Allergies Allergy Classification Reported Allergen(s) Allergy Type Date of Onset Reaction(s) Facility (11 sources) gabapentin; Translations: [gabapentin] Drug Allergy 08-05-2012 GI Upset [facility] Work Phone: (7 sources) Penicillins; Translations: [PENICILLINS] Allergy to substance 09-24-2007 [facility] Work Phone: (4 sources) Penicillin G; Translations: [PENICILLIN G] Drug Allergy 03-21-2022 [facility] Work Phone: (3 sources) Penicillin; Translations: [penicillin] Drug Allergy [facility] (1 source) gabapentin Drug Allergy 07-17-2023 [facility] Repository Medications Current Medications Medication Drug Class(es) Dates Sig (Normalized) Sig (Original) acetaminophen 500 mg oral capsule (12 sources) Start: 04-23-2022 acetaminophen 500 mg oral capsule Dose : 1,000 mg = 2 cap(s), Oral, q4h, PRN for pain, # 120 cap(s), 0 Refill(s) Start Date: 04/23/22 Status: Ordered Start: 03-04-2022 End: 05-31-2022 take 1000 mg by mouth every eight hours Acetaminophen Active 1000 MG PO Q8H 180 May 31, 2022 10:06am Start: 02-11-2022 take 2 tablets by mo [facility] every eight hours as needed for pain acetaminophen (TYLENOL) 500 mg tablet TAKE 2 TABLETS BY MOUTH EVERY 8 HOURS NEEDED FOR PAIN 0 02/11/2022 Active Start: 11-20-2021 End: 03-04-2022 Acetaminophen Discontinued 1 000 MG PO .q8 180 November 19, 2021 11:00pm March 03, 2022 11:16pm Comment on above: TAKE 2 TABLETS BY MO [facility] EVERY 8 HOURS NEEDED FOR PAIN amLODIPine 10 mg oral tablet (14 sources) Dihydropyridine Calcium Channel Charlee Start: 12-27-2021 End: 05-12-2022 Amlodipine Active TAB PO May 30, 2022 11:00pm Start: 11-20-2021 End: 12-27-2021 take 5 mg by mouth once daily Amlodipine Discontinued 5 MG PO DAILY 60 November 19, 2021 11:00pm December 27, 2021 11:40am Comment on above: Take 10 mg by mouth once daily. cyclobenzaprine hydrochloride 10 mg oral tablet (16 sources) Muscle Relaxant Start: 04-23-20 take 1 tablet by mouth at bedtime as needed cyclobenzaprine 10 mg oral tablet TAKE 1 TABLET BY MOUTH AT BEDTIME NEEDED Start Date: 04/23/22 Status: Ordered Start: 06-20-2021 End: 04-20-2022 take 10 mg by mouth at bedtime Cyclobenzaprine Discont inued 10 MG PO AT BEDTIME March 03, 2022 11:16pm April 20, 2022 1:21pm Comment on above: TAKE 1 TABLET BY [facility] TWICE DAILY NEEDED FOR MUSCLE SPASMS estradiol 0.1 mg/ml vaginal cream (2 sources) Estrogen Start: 03-08-2021 estradiol (ESTRACE) 0.01 % (0.1 mg/gram) vaginal cream Indications: Postmenopausal atrophic vaginitis Use 1 g vaginally as directed. A applicator full in vagina every night x 14 nights then twice a week. 42.5 g 4 03/08/2021 Active Comment on above: Use 1 g vaginally as directed. A applicator full in vagina every night x 14 nights then twice a week. ibuprofen 600 mg oral tablet (13 sources) Nonsteroidal Anti-inflammatory Drug Start: 11-20-2021 End: 05-29-2022 ibuprofen 600 mg oral tablet Dose : 600 mg = 1 tab(s), Oral, q8h, Take with food or milk., # 30 tab(s), 0 Refill(s) Start Date: 04/23/22 Status: Ordered Start: 11-27-2018 take 1 tablet by abigail th every eight hours as needed ibuprofen (MOTRIN) 800 mg tablet Take 1 tablet by mouth every 8 hours as needed. FOR PAIN. 90 tablet 1 11/27/2018 Active Comment on above: TAKE 1 TABLET BY ABIGAIL TH THREE TIMES DAILY NEEDED FOR PAIN, TAKE WITH FOOD AND LOTS OF WATER Take 1 tablet by abigail th every 8 hours as needed. FOR PAIN. meloxicam 15 mg oral tablet (1 source) Nonsteroidal Anti-inflammatory Drug Start: 2 take 15 mg by mouth once daily Meloxicam Active 15 MG PO DAILY May 30, 2022 11:00pm Multivitamin preparation (3 sources) Start: 1 take 1 tablet by mouth once daily Multivitamin Dose = 1 tab(s), Oral, Daily, 0 Refill(s) Start Date: 06/08/21 Status: Ordered naproxen 500 mg oral tablet (4 sources) Nonsteroidal Anti-inflammatory Drug Start: 3 End: 3 naproxen 500 mg oral tablet Dose : 500 mg = 1 tab(s), Oral, BID, X 5 day(s), # 10 tab(s), 0 Refill(s), 07/22/23 10:53:00 PM EST Start Date: 07/17/23 Stop Date: 07/22/23 Status: Ordered Start: 09-18-2021 End: 11-20-2021 take 500 mg by mouth twice daily Naproxen Discontinued 500 MG PO TWICE A DAY September 18, 2021 12:00am November 20, 2021 2:46pm Completed/Discontinued Medications Medication Drug Class(es) Dates Sig (Normalized) Sig (Original) twice-daily diclofenac epolamine 0.013 mg/mg medicated patch (3 sources) Nonsteroidal Anti-inflammatory Drug Start: 11-20-2021 End: 11-27-2021 apply 1 dose topically every twelve hours Diclofenac Epolamine Discontinued 1 PATCH TOPICAL Q12H November 19, 2021 11:00pm November 27, 2021 12:53pm doxycycline hyclate 100 mg oral capsule (3 sources) Tetracycline-class Drug Start: 03-04-2022 End: 04-24-2022 take 100 mg by mouth twice daily Doxycycline Hyclate Discontinued 100 MG PO TWICE A DAY March 03, 2022 11:00pm April 24, 2022 12:15pm lisinopril 20 mg oral tablet (2 sources) Angiotensin Converting Enzyme Inhibitor Start: 05-12-2022 End: 05-31-2022 take 20 mg by mouth once daily Lisinopril Discontinued 20 MG PO DAILY May 11, 2022 11:00pm May 31, 2022 9:37am nystatin 100 unt/mg topical powder (5 sources) Polyene Antifungal Start: 03-04-2022 End: 04-24-2022 Nystatin Discontinued 1 APPLIC TOPICAL DAILY March 03, 2022 11:00pm April 24, 2022 12:16pm Comment on above: apply one applicatio n topically daily as directed permethrin 50 mg/ml topical cream (1 source) Pyrethroid Start: 05-28-2023 End: 05-28-2023 permethrin (ELIMITE) 5 % cream Indications: Itching Apply 1 application to affected area one time only for 1 dose. massage into skin from neck to feet, leave on 8-12hrs, wash off; Info: repeat 2wks if live mites persist. Itching may persist after effective treatment. 60 g 1 05/28/2023 05/28/2023 Comment on above: Apply 1 application to affected area one time only for 1 dose. massage into skin from neck to feet, leave on 8-12hrs, wash off; Info: repeat 2wks if live mites persist. Itching may persist after effective treatment. Problems Active Problems Problem Classification Problem Date Documented Da te Episodic/Chronic Acute cerebrovascular disease (5 sources) Cerebral infarction; Translations: [Cerebral infarction, unspecified] Onset: 06-23-2009 06-21-2021 Chronic Administrative/social admission (3 sources) Counseling procedure with explicit context; Translations: [Tobacco abuse counseling] 06-20-2021 Episodic Allergic reactions (4 sources) Allergy to penicillin; Translations: [Allergy status to penicillin] Onset: 02-23-2014 09-24-2007 Episodic Disorders of lipid metabolism (2 sources) Hyperlipidemia; Translations: [Hyperlipidemia, unspecified] Onset: 01-21-2014 01-21-2014 Chronic E Codes: Fall (3 sources) Falling injury; Translations: [Unspecified fall, initial encounter] 09-26-2021 Episodic Essential hypertension (4 sources) Hypertensive disorder; Translations: [Essential (primary) hypertension] Chronic Mycoses (1 source) Onychomycosis; Translations: [Tinea unguium] Episodic Nonspecific chest pain (3 sources) Chest pain; Translations: [Chest pain, unspecified] 01-04-2014 Episodic Open wounds of extremities (3 sources) Laceration of right forearm; Translations: [Laceration without foreign body of right forearm, initial encounter] 11-21-2021 Episodic Other and unspecified benign neoplasm (1 source) Neuroma; Translations: [Benign neoplasm of peripheral nerves and autonomic nervous system, unspecified] Episodic Other connective tissue disease (1 source) Pain of toe of left foot; Translations: [Pain in left toe(s)] Episodic Other connective tissue disease (1 source) Pain of toe of right foot; Translations: [Pain in right toe(s)] Episodic Other connective tissue disease (1 source) Pain in right foot; Translations: [Pain in right foot] 04-15-2021 Episodic Other inflammatory condition of skin (1 source) Itching ; Translations: [Pruritus, unspecified] 05-28-2023 Episodic Other injuries and conditions due to external causes (1 source) Traumatic AND/OR non-traumatic injury; Translations: [Other injury of unspecified body region, initial encounter] Onset: 07-17-2023 Episodic Other nervous system disorders (1 source) Neuropathy; Translations: [Polyneuropathy, unspecified] Chronic Other nervous system disorders (2 sources) Bilateral carpal tunnel syndrome; Translations: [Carpal tunnel syndrome, bilateral upper limbs] Onset: 09-05-2018 09-25-2018 Chronic Other non-traumatic joint disorders (3 sources) Hip pain; Translations: [Pain in right hip] 11-20-2021 Episodic Other non-traumatic joint disorders (1 source) Pain in right hip; Translations: [Pain in joint, pelvic region and thigh] Episodic Residual codes; unclassified (3 sources) H/O Spinal surgery; Translations: [Other specified postprocedural states] 06-20-2021 Episodic Residual codes; unclassified (1 source) Pain; Translations: [Pain, unspecified] Episodic Residual codes; unclassified (2 sources) Bilateral lower limb edema; Translations: [Localized edema] 05-20-2022 Episodic Residual codes; unclassified (1 source) Procedure and treatment not carried out due to patient leaving prior to being seen by health care provider; Translations: [Procedure and treatment not carried out due to patient leaving prior to being seen by health care provider] Onset: 07-23-2023 Episodic Spondylosis; intervertebral disc disorders; other back problems (10 sources) Displacement of lumbar intervertebral disc without myelopathy; Translations: [Other intervertebral disc displacement, lumbar region] Onset: 09-24-2007 09-04-2021 Chronic Substance-related disorders (2 sources) Tobacco user; Translations: [Nicotine dependence, unspecified, uncomplicated] 10-11-2014 Chronic Superficial injury; contusion (9 sources) Contusion of hip; Translations: [Contusion of unspecified hip, initial encounter] 06-27-2013 Episodic Unclassified (3 sources) No history of clinical finding in subject; Translations: [No significant past medical history] 08-26-2019 Past or Other Problems Problem Classification Problem Date Documented Da te Episodic/Chronic Cancer of cervix (2 sources) Carcinoma in situ of uterine cervix; Translations: [Carcinoma in situ of cervix, unspecified] Onset: 01-07-1991 09-24-2007 Episodic Gastrointestinal hemorrhage (2 sources) Hemorrhage of rectum and anus; Translations: [Hemorrhage of anus and rectum] Onset: 01-06-2009 01-06-2009 Episodic Menstrual disorders (1 source) Menorrhagia; Translations: [Excessive and frequent menstruation with regular cycle] Onset: 04-11-2012 Resolved: 01-21-2014 01-21-2014 Chronic Noninfectious gastroenteritis (8 sources) Colitis; Translations: [Noninfective gastroenteritis and colitis, unspecified] Onset: 01-07-2009 06-21-2021 Episodic Other connective tissue disease (2 sources) Myofascial pain syndrome; Translations: [Myalgia, other site] Onset: 11-17-2014 11-17-2014 Episodic Other connective tissue disease (2 sources) Impingement syndrome of left shoulder region; Translations: [Impingement syndrome of left shoulder] Onset: 12-06-2016 12-06-2016 Episodic Other connective tissue disease (1 source) Lateral epicondylitis of right humerus; Translations: [Lateral epicondylitis, right elbow] Onset: 09-27-2011 Resolved: 01-21-2014 01-21-2014 Episodic Other non-traumatic joint disorders (2 sources) Shoulder pain; Translations: [Pain in unspecified shoulder] Onset: 09-10-2014 10-11-2014 Episodic Other non-traumatic joint disorders (2 sources) Soft tissue lesion of shoulder region; Translations: [Other specified joint disorders, unspecified shoulder] Onset: 12-20-2014 12-20-2014 Episodic Other non-traumatic joint disorders (2 sources) Shoulder joint pain; Translations: [Pain in unspecified shoulder] Onset: 12-20-2014 12-20-2014 Episodic Other non-traumatic joint disorders (2 sources) Pain in left shoulder; Translations: [Pain in joint, shoulder region] Onset: 11-26-2016 11-26-2016 Episodic Other non-traumatic joint disorders (2 sources) Chronic pain of left upper limb; Translations: [Pain in left shoulder] Onset: 12-06-2016 12-06-2016 Episodic Spondylosis; intervertebral disc disorders; other back problems (13 sources) Chronic back pain ; Translations: [Dorsalgia, unspecified] Onset: 02-25-2009 Resolved: 01-21-2014 Episodic Unclassified (3 sources) Contusion of left elbow, initial encounter 08-27-2019 Varicose veins of lower extremity (2 sources) Venous varices; Translations: [Asymptomatic varicose veins of unspecified lower extremity] Onset: 02-23-2014 09-04-2021 Episodic Results Test Name Value Interpretation Reference Range Facility XR TIBIA/FIBULA 2 VIEWS RIGH Ton 11-09-2023 XR TIBIA/FIBULA 2 VIEWS RIGHT ORIGINAL EXAMINATION: TWO XRAY VIEWS OF THE RIGHT TIBIA/FIBULA 07/17/2023 10:09 pm COMPARISON: None. HISTORY: ORDERING SYSTEM PROVIDED HISTORY: Reason for Exam: Leg caught in door FINDINGS: No acute fracture or dislocation identified. There is a smoothly marginated osseous density along lateral femoral epicondyle measuring 1.2 cm which may represent a sequela of remote injury or accessory ossicle. There are mild degenerative changes. Chondrocalcinosis. The talar dome is within normal limits. The tibiotalar joint space is normal. No suprapatellar joint effusion. No soft tissue swelling. No radiopaque foreign body. IMPRESSION: No acute fracture or dislocation. Chondrocalcinosis. I have personally reviewed the images of this examination and agree with the resident's findings and interpretation. Interpreted by: Lm Fan Preliminary Report By: Keon Rowe Electronically signed By Lm Fan Dictated Date: 07/17/2023 10:47:51 PM Prelim Date: 07/17/2023 10:50:12 PM Sign Date: 07/17/2023 10:55:52 PM Ordering Provider: LIZETTE VARELA [facility] ([place]) Tibia Fibula 2 Views 07-17 Tibia Fibula 2 Views [facility] [address] [place] [address] Tibia Fibula 2 Views MR#: [id number] Acct: [id number] Name: ALECIA BOWIE Rep #: [id number] : 1965 F 58 From: Rissa Couch MD PCP: Dr. Feliciano Jacobson MD Status: PRE ER Study: Tibia Fibula 2 Views Date of Exam: 07/17/23 Exam# [id number] Ordering Dr: Dewayne Hull [id number] STUDY: X-RAY - RIGHT TIBIA AND FIBULA REASON FOR EXAM: Female, 58 years old. calf/kay pain TECHNIQUE: 2 view(s) of the tibia and fibula were obtained. COMPARISON: None. FINDINGS: Normal visualized tibia. Normal visualized fibula. The soft tissue structures are unremarkable. RAD/Tibia Fibula 2 Views IMPRESSION: Normal x-ray examination of the tibia and fibula. Electronically Signed: Rissa Couch MD at 19:01 EST , CC: Dr. Feliciano Jacobson MD; ED PHYSICIAN PROVIDER [employer] Workers Supervisor: [facility]igned [facility]UCWSTR ) ALECIA BOWIE ([id number]) 1965 F Date Time Provider Department 05/28/23 2:15 PM MARIE BLOOD [facility] During your visit today, we recorded the following information about you: Temperature Pulse Respiration Blood pressure 97.8 degrees 95/minute 18/minute 136/84 Weight 67.2 kg Marie Blood APRN.[facility] 05/28/2023 2:13 PM Signed Subjective HPI Aleciaandrea Bowie is a 57 year old female who presents with itching all over and a rash on her left arm. She notices some dark black tiny specks on her skin and she pulls at them with tweezers and pulls out a tiny hairy ledezma-colored flea or something. Her dog has mange and she has been washing her bedding every day since he was treated. She denies fever or pain. States itching is persistent. Review of Systems Constitutional: Negative for chills and fever. Musculoskeletal: Negative for joint pain and myalgias. Skin: Positive for itching and rash. BP 136/84 Pulse 95 Temp 36.6 ?C (97.8 ?F) (Tympanic) Resp 18 Wt 67.2 kg (148 lb 3.2 oz) LMP 01/07/2014 SpO2 98% BMI 26.25 kg/m? 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 Cone biopsy, pap x 2 after were WNL Colitis Essential hypertension 05/2021 Hemorrhage of rectum and anus Other and unspecified noninfectious gastroenteritis and colitis(558.9) Personal history of allergy to penicillin young adulthood Stroke (HCC) Stroke (HCC) 15 years ago Tobacco use disorder age 14 Vertigo PAST SURGICAL HISTORY Procedure Laterality Date COLONOSCOPY FLX DX W/COLLJ SPEC WHEN PFRMD Colonoscopy COLONOSCOPY FLX DX W/COLLJ SPEC WHEN PFRMD 04/07/14 Colonoscopy COLONOSCOPY W/BIOPSY SINGLE/MULTIPLE 01/07/09 Acute colitis transverse and descending colon CONIZATION CERVIX W/WO DANDC RPR KNIFE/LASER cone biopsy, JALIL III, Dr. Avina ENDOMETRIAL ABLATION WITH US GUIDANCE 2011 ESOPHAGOGASTRODUODENOS COPY TRANSORAL DIAGNOSTIC 04/07/14 EGD HYSTEROSCOPY,W/ENDOMET RIAL ABLATION 04/2012 benign endometrium LIG/TRNSXJ FLP TUBE ABDL/VAG APPR UNI/BI Tubal ligation LIGATE FALLOPIAN TUBE LOW BACK DISK SURGERY NEUROPLASTY AND/TRANSPOS MEDIAN NRV CARPAL TUNNE Bilateral 09/25/2018 Bilateral carpal tunnel release ALLERGIES Gabapentin, Penicillin G, and Penicillins MEDICATIONS ibuprofen (MOTRIN) 600 mg tablet TAKE 1 TABLET BY MOUTH THREE TIMES DAILY NEEDED FOR PAIN, TAKE WITH FOOD AND LOTS OF WATER permethrin (ELIMITE) 5 % cream Apply 1 application to affected area one time only for 1 dose. massage into skin from neck to feet, leave on 8-12hrs, wash off; Info: repeat 2wks if live mites persist. Itching may persist after effective treatment. acetaminophen (TYLENOL) 500 mg tablet TAKE 2 TABLETS BY MOUTH EVERY 8 HOURS NEEDED FOR PAIN (Patient not taking: Reported on 05/28/2023) amLODIPine (NORVASC) 10 mg tablet Take 10 mg by mouth once daily. (Patient not taking: Reported on 05/28/2023) cyclobenzaprine (FLEXERIL) 10 mg tablet TAKE 1 TABLET BY MOUTH TWICE DAILY NEEDED FOR MUSCLE SPASMS (Patient not taking: Reported on 05/28/2023) nystatin (MYCOSTATIN) powder apply one application topically daily as directed (Patient not taking: Reported on 05/28/2023) estradiol (ESTRACE) 0.01 % (0.1 mg/gram) vaginal cream Use 1 g vaginally as directed. A applicator full in vagina every night x 14 nights then twice a week. (Patient not taking: Reported on 05/28/2023) ibuprofen (MOTRIN) 800 mg tablet Take 1 tablet by mouth every 8 hours as needed. FOR PAIN. (Patient not taking: Reported on 04/14/2021 ) FAMILY HISTORY Problem Relation Age of Onset COPD Mother Thyroid Sister Fibromyalgia Sister Thyroid Sister Fibromyalgia Sister Thyroid Sister Diabetes Sister Hypertension Mother None Father does not go to Dr. Diabetes Sister Coronary Artery Disease Other none Breast Cancer Other great aunt Cancer Paternal Grandmother COPD Maternal Grandmother Social History Tobacco Use Smoking status: Every Day Packs/day: 0.50 Years: 20.00 Additional pack years: 0.00 Total pack years: 10.00 Types: Cigarettes Smokeless tobacco: Never Vaping Use Vaping Use: Never used Substance Use Topics Alcohol use: Yes Alcohol/week: 2.0 standard drinks of alcohol Types: 2 Cans of Beer (12oz) per week Comment: occationally Drug use: Yes Types: Marijuana Comment: no IVDA, snorting Objective Physical Exam Vitals and nursing note reviewed. Constitutional: Appearance: Normal appearance. Skin: General: Skin is warm and dry. Findings: Erythema and rash present. Neurological: Mental Status: She is alert. ASSESSMENT/PLAN: 1. Itching - ICD9: 698.9, ICD10: L29.9 - PERMETHRIN 5 % TOPICAL CREAM - use as directed - Follow-up with your PCP in 3-5 days if symptoms have not improved or sooner if symptoms (more content not included)... Normal [facility] LABORATORYOrdered By: Jorje Tellez on 04-23-2022 aPTT Coag (Bld) [Time] 28.7 s Invalid Interpretation Code 24.8 - 33.3 seconds AO Coag SS Heparin dose (APTT) Unknown (04/23/22 8:21 AM) Invalid Interpretation Code AO Coag SS INR Coag (PPP) [Relative time] 0.8 {INR} Invalid Interpretation Code 0.9 - 1.2 ratio AO Coag SS PT Coag (PPP) [Time] 9.6 s Invalid Interpretation Code 9.7 - 14.3 seconds AO Coag SS LABORATORYOrdered By: Lisbeth Burton on 04-23-2022 Basophil, Absolute 0.0 103/mcL Invalid Interpretation Code 0.0 - 0.2 10^3/mcL AO Workflow SS Basophils/100 WBC (Bld) 0.8 % Invalid Interpretation Code 0.0 - 2.5 % AO Workflow SS Eosinophil, Absolute 0.2 103/mcL Invalid Interpretation Code 0.0 - 0.4 10^3/mcL AO Workflow SS Eosinophils/100 WBC (Bld) 4.5 % Invalid Interpretation Code 0.0 - 7.0 % AO Workflow SS Erythrocyte distribution width (RBC) [Ratio] 12.9 % Invalid Interpretation Code 11.5 - 14.5 % AO Workflow SS Hematocrit (Bld) [Volume fraction] 40.2 % Invalid Interpretation Code 37.0 - 47.0 % AO Workflow SS Hemoglobin (Bld) [Mass/Vol] 13.8 G/dL Invalid Interpretation Code 12.0 - 16.0 G/dL AO Workflow SS Lymphocyte, Absolute 1.5 103/mcL Invalid Interpretation Code 0.8 - 3.9 10^3/mcL AO Workflow SS Lymphocytes/100 WBC (Bld) 36.6 % Invalid Interpretation Code 10.0 - 50.0 % AO Workflow SS MCH (RBC) [Entitic mass] 33.0 pg Invalid Interpretation Code 27.0 - 31.2 pg AO Workflow SS MCHC 34.3 G/dL Invalid Interpretation Code 33.0 - 37.0 G/dL AO Workflow SS MCV (RBC) [Entitic vol] 96.1 fL Invalid Interpretation Code 80.0 - 94.0 fL AO Workflow SS Monocyte, Absolute 0.4 103/mcL Invalid Interpretation Code 0.2 - 1.0 10^3/mcL AO Workflow SS Monocytes/100 WBC (Bld) 9.8 % Invalid Interpretation Code 1.7 - 13.0 % AO Workflow SS Neutrophil, Absolute 2.0 103/mcL Invalid Interpretation Code 2.9 - 6.2 10^3/mcL AO Workflow SS Neutrophils/100 WBC (Bld) 48.3 % Invalid Interpretation Code 37.0 - 80.0 % AO Workflow SS Platelet mean volume (Bld) [Entitic vol] 8.5 fL Invalid Interpretation Code 7.4 - 10.4 fL AO Workflow SS Platelets (Bld) [#/Vol] 230 103/mcL Invalid Interpretation Code 130 - 400 10^3/mcL AO Workflow SS RBC (Bld) [#/Vol] 4.19 106/mcL Invalid Interpretation Code 4.20 - 5.40 10^6/mcL AO Workflow SS WBC 4.1 103/mcL Invalid Interpretation Code 4.6 - 10.8 10^3/mcL AO Workflow SS LABORATORYOrdered By: Shea Schaffer on 04-23-2022 Calcium [Mass/Vol] 9.2 mg/dL Invalid Interpretation Code 8.4 - 10.2 mg/dL AO ADM SS Chloride [Moles/Vol] 104 mmol/L Invalid Interpretation Code 98 - 107 mmol/L AO ADM SS CO2 [Moles/Vol] 27 mmol/L Invalid Interpretation Code 22 - 29 mmol/L AO ADM SS Creatinine [Mass/Vol] 0.71 mg/dL Invalid Interpretation Code 0.55 - 1.02 mg/dL AO ADM SS Electrolyte Balance 10.0 mEq/L Invalid Interpretation Code 4.0 - 15.0 mEq/L AO ADM SS Glucose [Mass/Vol] 105 mg/dL Invalid Interpretation Code 70 - 105 mg/dL AO ADM SS Potassium [Moles/Vol] 3.9 mmol/L Invalid Interpretation Code 3.5 - 5.1 mmol/L AO ADM SS Sodium [Moles/Vol] 141 mmol/L Invalid Interpretation Code 136 - 145 mmol/L AO ADM SS Urea nitrogen [Mass/Vol] 21 mg/dL Invalid Interpretation Code 7 - 18 mg/dL AO ADM SS Urea nitrogen/Creatinine [Mass ratio] 30 ratio Invalid Interpretation Code 7 - 27 ratio AO ADM SS LABORATORYOrdered By: SYSTEM SYSTEM on 04-23-2022 GFR 103 ml/min/1.73sqm Invalid Interpretation Code AO Chemistry S GFR Non- 85 ml/min/1.73sqm Invalid Interpretation Code AO Chemistry S Monocyte distribution width Auto (Bld) [Entitic vol] Not Performed 1 *NA* (04/23/22 8:21 AM) Invalid Interpretation Code 0.00 - 20.00 AO Hematology S Comment on above: Result Comment: MDW testing performed only on adult ER patients between the ages of 18-89 years. ELVISOVon 03-21-2022 CNOV Office Visit (PODIWS ) ALECIA BOWIE ([id number]) 1965 F Date Time Provider Department 03/21/22 3:15 PM RENEE BROWNE PODGAMA During your visit today, we recorded the following information about you: Luisana Martinez LPN 03/23/2022 6:41 AM Signed AMB ROOMING INTAKE FLOWSHEET DATA Risk Screening Do you have concerns about personal safety or safety in the home?: No Pain Pain Level: 10 Pain Location: Other: See Comment (b/l foot pain) Description: Other: See comment, Numbness (electric shock) Duration Amount of Time: 1 Duration Units: Years Frequency: Continuous Intervention/Comfort measure: Reposition, Relaxation, Medication (ibuprofen/ tylenol/ flexril) Patient presents with: Left Foot - New, Pain, Numbness Right Foot - New, Pain, Numbness GARCIA Galindo DPM 03/23/2022 6:41 AM Signed Initial Podiatric Office Visit: Chief Complaint: This 56 year old female who presents with chief complaint:nail deformity of b/l feet. Patient also complains of numbness of b/l HPI Patient presents to clinic for evaluation of b/l feet 1. She complains of long 2nd toenail of b/l feet. This causes her pain and at times, she trips over the nails. 2. She also complains of numbness of b/l feet. Patient denies history of diabetes. Patient has history of 3 ruptured disks of her lower back. Patient smokes 1/2 pack of cigarettes/day. PAIN EVALUATION 03/21/2022 1515 Pain Level: 10 Pain Location: Other: See Comment b/l foot pain Description: Other: See comment;Numbness electric shock Duration Amount of Time: 1 Duration Units: Years Frequency: Continuous Intervention/Comfort measure: Reposition;Relaxation; Medication ibuprofen/ tylenol/ flexril No results found for: HBA1C PCP: No primary care provider on file. PAST MEDICAL HISTORY Diagnosis Date - Essential hypertension 05/2021 - Stroke (HCC) 15 years ago Current Outpatient Medications Medication Sig - acetaminophen (TYLENOL) 500 mg tablet TAKE 2 TABLETS BY MOUTH EVERY 8 HOURS NEEDED FOR PAIN - amLODIPine (NORVASC) 10 mg tablet Take 10 mg by mouth once daily. - cyclobenzaprine (FLEXERIL) 10 mg tablet TAKE 1 TABLET BY MOUTH TWICE DAILY NEEDED FOR MUSCLE SPASMS - ibuprofen (MOTRIN) 600 mg tablet TAKE 1 TABLET BY MOUTH THREE TIMES DAILY NEEDED FOR PAIN, TAKE WITH FOOD AND LOTS OF WATER - nystatin (MYCOSTATIN) powder apply one application topically daily as directed No current facility-administered medications for this visit. ALLERGIES Allergen Reactions - Gabapentin GI Upset - Penicillin G Hives PAST SURGICAL HISTORY Procedure Laterality Date - LIGATE FALLOPIAN TUBE - LOW BACK DISK SURGERY FAMILY HISTORY Problem Relation Age of Onset - COPD Mother - Thyroid Sister - Fibromyalgia Sister - Thyroid Sister - Fibromyalgia Sister - Thyroid Sister - Diabetes Sister Social History Tobacco Use - Smoking status: Current Every Day Smoker Packs/day: 0.50 Years: 20.00 Pack years: 10.00 Types: Cigarettes - Smokeless tobacco: Never Used Vaping Use - Vaping Use: Not on file Substance Use Topics - Alcohol use: Yes Alcohol/week: 2.0 standard drinks Types: 2 Cans of Beer (12oz) per week Comment: occationally - Drug use: Yes Types: Marijuana REVIEW OF SYSTEMS GENERAL: Negative for Malaise, significant weight loss, fever RESPIRATORY: Negative for cough, wheezing and shortness of breath CARDIOVASCULAR: Negative for chest pain, leg swelling and palpitations GI: Negative for abdominal discomfort, blood in stools or black stools and change in bowel habits : Negative for dysuria, frequency and incontinence MUSCULOSKELETAL: Negative for joint pain or swelling, back pain, and muscle pain. SKIN: Negative for lesions, rash, and itching. HEMATOLOGY/LYMPHOLOGY Negative for prolonged bleeding, bruising easily, and swollen nodes. ENDOCRINE: Negative for cold or heat intolerance, polyuria, polydipsia and goiter. NEURO: negative Physical Exam: Constitutional: Pt is a well developed 56 year old female who is alert, oriented and cooperative Eyes: Following during examination. No redness or drainage. Respiratory: RR normal and nonlabored. Even breathing. No evidence of distress or shortness of breath. Psychology: Patient is engaged during conversation. Normal affect and mood. Does not appear depressed or anxious during encounter. Vascular: Dorsalis pedis and posterior tibial pulses nonpalpable but audible b/l Capillary Fill time < 5 seconds to digits 1-5 b/l Skin temperature warm to warm proximal to distal b/l Hair growth present to digits Neurological: intact light touch/epicritic sensation Vibratory sensation decreased b/l decreased protective sensation + significant neurological deficits Dermatological: Nails 1-5 b/l appear discolored, elongated, painful (more content not included)... Normal [facility] XR FOOT 3V AP/LAT/OBL BILon 03-21-2022 XR FOOT 3V AP/LAT/OBL KAELA * * *Final Report* * * DATE OF EXAM: Mar 21 2022 3:00PM [id number] - XR FOOT 3V AP/LAT/OBL KAELA / PROCEDURE REASON: Pain * * * * Physician Interpretation * * * * EXAM TITLE: XR FOOT 3V AP/LAT/OBL KAELA EXAM DATE/TIME: 03/21/2022 3:00 PM COMPARISON: None CLINICAL INDICATION/HISTORY: Foot pain. TECHNIQUE: AP, lateral and oblique views of both feet are presented. FINDINGS: No acute fractures or subluxations are noted. First metatarsophalangeal joint space narrowing is demonstrated in the right first digit, with associated osteophyte formation. The other joint spaces are well preserved. The mineralization of the bones is normal. There is no significant soft tissue swelling. IMPRESSION: Degenerative changes in the first digit of the right foot. [employer] Supervisor: PSCB Transcribe Date/Time: Mar 23 2022 12:06P Dictated by : ARIANA TEJEDA MD This examination was interpreted and the report reviewed and electronically signed by: ARIANA TEJEDA MD on Mar 23 2022 1:09PM EST [id number] Normal [facility] CNCOon 03-08-2022 CNCO Letter Text Normal [facility] Absolute lymphocyte counton 11-20-2021 Lymphocytes Auto (Unsp spec) [#/Vol] 2.18 10*3/uL 0.83-4.51 [facility] Work Phone: Basophil percentageon 2021 Basophils/100 WBC (Bld) 0.6 % 0-1 [facility] Work Phone: Bilirubin [Mass/Vol] 0.10 mg/dL 0.20-1.00 [facility] Work Phone: Comment on above: For patients on eltr ombopag therapy, use of Dimension [place] TBIL is not recommended. Chloride [Moles/Vol] 105 mmol/L 98-107 [facility] Work Phone: Cholesterol [Mass/Vol] 211 mg/dL <200 [facility] Work Phone: Comment on above: <200 mg/dL Desirable 200-240 mg/dL Borderline >240 mg/dL High Risk Eosinophils/100 WBC (Bld) 5.3 % 0-5 [facility] Work Phone: Glucose [Mass/Vol] 94 mg/dL 74-106 [facility] Work Phone: Neutrophils (Bld) [#/Vol] 2.2 10*3/uL 2.0-7.7 [facility] Work Phone: Neutrophils/100 WBC (Bld) 43.7 % 47-70 [facility] Work Phone: Potassium [Moles/Vol] 3.9 mmol/L 3.5-5.1 [facility] Work Phone: Protein [Mass/Vol] 7.5 g/dL 6.4-8.2 [facility] Work Phone: Sodium [Moles/Vol] 138 mmol/L 136-145 [facility] Work Phone: Triglyceride [Mass/Vol] 190 mg/dL <199 [facility] Work Phone: Comment on above: The drugs N-Acetylcy steine and Metamizole may falsely depress this assay.Serum Triglycerides Reference Interval Normal <150 mg/dL Borderline high 150 - 199 mg/dL High 200 - 499 mg/dL Very High > or = 500 mg/dL WBC (Bld) [#/Vol] 5.1 10*3/uL 4.4-11.0 [facility] Work Phone: Blood erythrocytes count (nu mber/volume)on 11-20-2021 RBC (Bld) [#/Vol] 4.12 10*6/uL 4.2-5.[address] [facility] Work Phone: Blood hemoglobin measurement (mass/volume)on 11-20-2021 Hemoglobin (Bld) [Mass/Vol] 12.9 g/dL 12.0-15.0 [facility] Work Phone: Blood lymphocytes/100 leukoc yteson 11-20-2021 Lymphocytes/100 WBC (Bld) 42.7 % 19-41 [facility] Work Phone: Blood monocytes/100 leukocyt eson 11-20-2021 Monocytes/100 WBC (Bld) 7.5 % 0-10 [facility] Work Phone: Blood platelet mean volumeon 11-20-2021 Platelet mean volume (Bld) [Entitic vol] 10.2 fL 6.2-12.0 [facility] Work Phone: Determination of erythrocyte mean corpuscular volume (MCV)on 11-20-2021 MCV (RBC) [Entitic vol] 95.4 fL 81-99 [facility] Work Phone: Hematocrit Auto (Bld) [Volum e fraction]on 11-20-2021 Hematocrit (Bld) [Volume fraction] 39.3 % 37-47 [facility] Work Phone: Laboratory - Chemistry and C hemistry - challengeon 11-20-2021 ALP [Catalytic activity/Vol] 90 U/L 45-117 [facility] Work Phone: ALT [Catalytic activity/Vol] 28 U/L 13-56 [facility] Work Phone: CO2 [Moles/Vol] 29.0 mmol/L 21.0-32.0 [facility] Work Phone: Globulin (S) [Mass/Vol] 3.5 g/dL 2.2-4.2 [facility] Work Phone: Urea nitrogen/Creatinine [Mass ratio] 19.1 mg/mg 10-20 [facility] Work Phone: Laboratory - Hematology and Cell countson 11-20-2021 Erythrocyte distribution width (RBC) [Entitic vol] 45.6 fL 35.1-43.9 [facility] Work Phone: Erythrocyte distribution width (RBC) [Ratio] 12.9 % 11.6-14.6 [facility] Work Phone: Immature granulocytes/100 WBC (Bld) 0.200 % 0.0-0.9 [facility] Work Phone: Comment on above: IG% - Immature Granu locytes (promyelocytes, myelocytes and metamyelocytes) > 1% indicates that a LEFT SHIFT is Present. MCH (RBC) [Entitic mass] 31.3 pg 27.0-32.0 [facility] Work Phone: Nucleated RBC/100 WBC (Bld) [Ratio] 0 % 0-5 [facility] Work Phone: MCHC Auto (RBC) [Mass/Vol]on 11-20-2021 MCHC (RBC) [Mass/Vol] 32.8 g/dL 32-36 [facility] Work Phone: No Panel Informationon 11-20 Estimated GFR (MDRD) Amer 84 mL/min >60 [facility] Work Phone: Comment on above: GFR Calc Estimated GFR (MDRD) Non-Af Amer 70 mL/min >60 [facility] Work Phone: Comment on above: Non- GFR Calc Platelets bldon 11-20-2021 Platelets (Bld) [#/Vol] 204 10*3/uL 150-450 [facility] Work Phone: Serum or plasma albumin emile urement (mass/volume)on 11-20-2021 Albumin [Mass/Vol] 4.0 g/dL 3.2-5.0 [facility] Work Phone: Serum or plasma albumin/glob ulin mass ratioon 11-20-2021 Albumin/Globulin [Mass ratio] 1.1 {ratio} 0.9-2.4 [facility] Work Phone: Serum or plasma calcium emile urement (mass/volume)on 11-20-2021 Calcium [Mass/Vol] 9.1 mg/dL 8.5-10.1 [facility] Work Phone: Serum or plasma cholesterol in HDL measurement (mass/volume)on 11-20-2021 Cholesterol in HDL [Mass/Vol] 61 mg/dL >40 [facility] Work Phone: Comment on above: The drugs N-Acetylcy steine and Metamizole may falsely depress this assay. Reference Range HDL <40 mg/dL Low HDL Cholesterol HDL >or= 60 mg/dL High HDL Cholesterol Serum or plasma cholesterol in VLDL measurement (mass/volume)on 11-20-2021 Cholesterol in VLDL [Mass/Vol] 38 mg/dL 5-40 [facility] Work Phone: Serum or plasma creatinine m easurement (mass/volume)on 11-20-2021 Creatinine [Mass/Vol] 0.89 mg/dL 0.55-1.02 [facility] Work Phone: Comment on above: The validity of the calculated GFR & GFRAA in patients over 70 years has not been determined. Clinical correlation is essential. Serum or plasma low density lipoprotein (LDL) cholesterol measurement (mass/volume)on 11-20-2021 Cholesterol in LDL [Mass/Vol] 112 mg/dL 0-130 [facility] Work Phone: Serum or plasma urea nitroge n measurement (mass/volume)on 11-20-2021 Urea nitrogen [Mass/Vol] 17 mg/dL 7-18 [facility] Work Phone: Thin prep Papanicolaou smear with manual screeningon 11-20-2021 Thin prep Papanicolaou smear with manual screening 18 U/L 15-37 [facility] Work Phone: Thin prep Papanicolaou smear with manual screening 4 5-15 [facility] Work Phone: [phone] .Auto Diffon 06-09-2021 Basophil, Absolute 0.00 10 3/mcL Normal 0.00-0.19 [facility] ([place]) Comment on above: Performed By: #### A CATRINA, ADIFF, CBC #### [address] [address] Basophils/100 WBC (Bld) 0.2 % Normal 0.0-2.5 [facility] ([place]) Comment on above: Performed By: #### A CATRINA, ADIFF, CBC #### [address] [address] Eosinophil, Absolute 0.00 10 3/mcL Normal 0.00-0.40 A [facility] ([place]) Comment on above: Performed By: #### A CATRINA, ADIFF, CBC #### [address] [address] Eosinophils/100 WBC (Bld) 0.1 % Normal 0.0-7.0 [facility] ([place]) Comment on above: Performed By: #### A CATRINA, ADIFF, CBC #### [address] [address] Lymphocyte, Absolute 0.90 10 3/mcL Normal 0.77-3.85 A [facility] ([place]) Comment on above: Performed By: #### A CATRINA, ADIFF, CBC #### [address] [address] Lymphocytes/100 WBC (Bld) 9.8 % Low 10.0-50.0 [facility] ([place]) Comment on above: Performed By: #### A CATRINA, ADIFF, CBC #### [address] [address] Monocyte, Absolute 0.40 10 3/mcL Normal 0.15-1.00 [facility] ([place]) Comment on above: Performed By: #### A LISSETH FRITZ, CBC #### [address] [address] Monocytes/100 WBC (Bld) 4.2 % Normal 1.7-13.0 [facility] ([place]) Comment on above: Performed By: #### A LISSETH FRITZ, CBC #### [address] [address] Neutrophils/100 WBC (Bld) 85.7 % High 37.0-80.0 [facility] ([place]) Comment on above: Performed By: #### A LISSETH FRITZ, CBC #### [address] [address] .GFRon 06-09-2021 GFR 90 ml/min/1.73sqm Normal [facility] ([place]) Comment on above: Result Comment: GFR Population mean for , Non- Americans Ages 20-29 = 116 mL/min/1.73 sq.m. Ages 30-39 = 107 mL/min/1.73 sq.m. Ages 40-49 = 99 mL/min/1.73 sq.m. Ages 50-59 = 93 mL/min/1.73 sq.m. Ages 60-69 = 85 mL/min/1.73 sq.m. Ages 70+ = 75 mL/min/1.73 sq.m. Chronic Kidney Disease: Less than 60 mL/min/1.73 square meters End Stage Renal Disease: Less than 15 mL/min/1.73 square meters Performed By: #### G FR #### [address] [address] #### BMP #### [address] [address] GFR Non- 74 ml/min/1.73sqm Normal [facility] ([place] Comment on above: Result Comment: GFR Population mean for , Non- Americans Ages 20-29 = 116 mL/min/1.73 sq.m. Ages 30-39 = 107 mL/min/1.73 sq.m. Ages 40-49 = 99 mL/min/1.73 sq.m. Ages 50-59 = 93 mL/min/1.73 sq.m. Ages 60-69 = 85 mL/min/1.73 sq.m. Ages 70+ = 75 mL/min/1.73 sq.m. Chronic Kidney Disease: Less than 60 mL/min/1.73 square meters End Stage Renal Disease: Less than 15 mL/min/1.73 square meters Performed By: #### G FR #### [address] [address] #### BMP #### [address] [address] .NEUABSon 06-09-2021 Neutrophil, Absolute 7.80 10 3/mcL High 2.85-6.16 A [facility] ([place]) Comment on above: Performed By: #### A CATRINA, ADIFF, CBC #### [address] [address] BMPon 06-09-2021 BUN/Creatinine Ratio 20 ratio Normal 7-27 [facility] ([place]) Comment on above: Performed By: #### G FR #### [place] [address] #### BMP #### [address] [address] Calcium [Mass/Vol] 8.8 mg/dL Normal 8.4-10.2 [facility] ([place]) Comment on above: Performed By: #### G FR #### [place] [address] #### BMP #### [address] [address] Chloride [Moles/Vol] 104 mmol/L Normal 98-107 [facility] ([place]) Comment on above: Performed By: #### G FR #### [place] [address] #### BMP #### [address] [address] CO2 [Moles/Vol] 32 mmol/L High 22-29 [facility] ([place]) Comment on above: Performed By: #### G FR #### [address] [address] #### BMP #### [address] [address] Creatinine [Mass/Vol] 0.80 mg/dL Normal 0.55-1.02 [facility] ([place]) Comment on above: Performed By: #### G FR #### [address] [address] #### BMP #### [address] [address] Electrolyte Balance 4.0 mEq/L Normal [facility] ([place]) Comment on above: Performed By: #### G FR #### [address] [address] #### BMP #### [address] [address] Glucose [Mass/Vol] 112 mg/dL High 70-105 [facility] ([place]) Comment on above: Performed By: #### G FR #### [address] [address] #### BMP #### [address] [address] Potassium [Moles/Vol] 4.4 mmol/L Normal 3.5-5.1 [facility] ([place]) Comment on above: Performed By: #### G FR #### [address] [address] #### BMP #### [address] [address] Sodium [Moles/Vol] 140 mmol/L Normal 136-145 [facility] ([place]) Comment on above: Performed By: #### G FR #### [address] [address] #### BMP #### [address] [address] Urea nitrogen [Mass/Vol] 16 mg/dL Normal 7-18 [facility] ([place]) Comment on above: Performed By: #### G FR #### [place] [address] #### BMP #### [address] [address] CBCon 06-09-2021 Erythrocyte distribution width (RBC) [Ratio] 13.2 % Normal 11.5-14.5 [facility] ([place]) Comment on above: Performed By: #### A LISSETH FRITZ, CBC #### [address] [address] Hematocrit (Bld) [Volume fraction] 36.6 % Low 37.0-47.0 [facility] ([place] Comment on above: Performed By: #### A LISSETH FRITZ, CBC #### [address] [address] Hgb 12.4 G/dL Normal 12.0-16.0 [facility] ([place] Comment on above: Performed By: #### A LISSETH FRITZ, CBC #### [address] [address] MCH (RBC) [Entitic mass] 33.2 pg High 27.0-31.2 [facility] ([place] Comment on above: Performed By: #### A LISSETH FRITZ, CBC #### [address] [address] MCHC 33.9 G/dL Normal 33.0-37.0 [facility] ([place] Comment on above: Performed By: #### A LISSETH FRITZ, CBC #### [address] [address] MCV (RBC) [Entitic vol] 97.9 fL High 80.0-94.0 [facility] ([place] Comment on above: Performed By: #### A LISSETH FRITZ, CBC #### [address] [address] Platelet 242 10 3/mcL Normal 130-400 [facility] ([place] Comment on above: Performed By: #### A LISSETH FRITZ, CBC #### [address] [address] Platelet mean volume (Bld) [Entitic vol] 8.7 fL Normal 7.4-10.4 [facility] ([place] Comment on above: Performed By: #### A CATRINA, ADIFF, CBC #### [address] [address] RBC 3.74 10 6/mcL Low 4.20-5.40 [facility] ([place] Comment on above: Performed By: #### A CATRINA, ADIFF, CBC #### [place] [address] WBC 9.10 10 3/mcL Normal 4.60-10.80 [facility] ([place] Comment on above: Performed By: #### A CATRINA, ADIFF, CBC #### [place] [id number] .Auto Diffon 06-08-2021 Basophil, Absolute 0.00 10 3/mcL Normal 0.00-0.19 [facility] ([place]) Comment on above: Performed By: #### C BC, ANEU, ADIFF, BMP #### [place] [address] #### GFR #### [address] [address] Basophils/100 WBC (Bld) 0.4 % Normal 0.0-2.5 [facility] ([place] Comment on above: Performed By: #### C BC, ANEU, ADIFF, BMP #### [address] [address] #### GFR #### [address] [address] Eosinophil, Absolute 0.10 10 3/mcL Normal 0.00-0.40 Counts include 234 beds at the [facility] ([place]) Comment on above: Performed By: #### C BC, ANEU, ADIFF, BMP #### [place] [address] #### GFR #### [address] [address] Eosinophils/100 WBC (Bld) 0.8 % Normal 0.0-7.0 [facility] ([place]) Comment on above: Performed By: #### C BC, ANEU, ADIFF, BMP #### [address] [address] #### GFR #### [address] [address] Lymphocyte, Absolute 0.60 10 3/mcL Low 0.77-3.85 Counts include 234 beds at the [facility] ([place]) Comment on above: Performed By: #### C BC, ANEU, ADIFF, BMP #### [place] [address] #### GFR #### [address] [address] Lymphocytes/100 WBC (Bld) 8.7 % Low 10.0-50.0 [facility] ([place]) Comment on above: Performed By: #### C BC, ANEU, ADIFF, BMP #### [place] [address] #### GFR #### [address] [address] Monocyte, Absolute 0.10 10 3/mcL Low 0.15-1.00 [facility] ([place]) Comment on above: Performed By: #### C BC, ANEU, ADIFF, BMP #### [place] [address] #### GFR #### [address] [address] Monocytes/100 WBC (Bld) 1.2 % Low 1.7-13.0 [facility] ([place]) Comment on above: Performed By: #### C BC, ANEU, ADIFF, BMP #### [place] [address] #### GFR #### [address] [address] Neutrophils/100 WBC (Bld) 88.9 % High 37.0-80.0 [facility] ([place]) Comment on above: Performed By: #### C BC, ANEU, ADIFF, BMP #### [place] [id number] [place], [place] [address] #### GFR #### [address] [address] .GFRon 06-08-2021 GFR 78 ml/min/1.73sqm Normal [facility] ([place]) Comment on above: Result Comment: GFR Population mean for , Non- Americans Ages 20-29 = 116 mL/min/1.73 sq.m. Ages 30-39 = 107 mL/min/1.73 sq.m. Ages 40-49 = 99 mL/min/1.73 sq.m. Ages 50-59 = 93 mL/min/1.73 sq.m. Ages 60-69 = 85 mL/min/1.73 sq.m. Ages 70+ = 75 mL/min/1.73 sq.m. Chronic Kidney Disease: Less than 60 mL/min/1.73 square meters End Stage Renal Disease: Less than 15 mL/min/1.73 square meters Performed By: #### C BC, ANEU, ADIFF, BMP #### [place] [id number] [place], [place] [address] #### GFR #### [address] [address] GFR Non- 65 ml/min/1.73sqm Normal [facility] ([place]) Comment on above: Result Comment: GFR Population mean for , Non- Americans Ages 20-29 = 116 mL/min/1.73 sq.m. Ages 30-39 = 107 mL/min/1.73 sq.m. Ages 40-49 = 99 mL/min/1.73 sq.m. Ages 50-59 = 93 mL/min/1.73 sq.m. Ages 60-69 = 85 mL/min/1.73 sq.m. Ages 70+ = 75 mL/min/1.73 sq.m. Chronic Kidney Disease: Less than 60 mL/min/1.73 square meters End Stage Renal Disease: Less than 15 mL/min/1.73 square meters Performed By: #### C BC, ANEU, ADIFF, BMP #### [address] [address] #### GFR #### [address] [address] .NEUABSon 06-08-2021 Neutrophil, Absolute 6.50 10 3/mcL High 2.85-6.16 A [facility] ([place]) Comment on above: Performed By: #### C BC, ANEU, ADIFF, BMP #### [place] [address] #### GFR #### [address] [address] BMPon 06-08-2021 BUN/Creatinine Ratio 21 ratio Normal 7-27 [facility] ([place]) Comment on above: Performed By: #### C BC, ANEU, ADIFF, BMP #### [address] [address] #### GFR #### [place] [address] Calcium [Mass/Vol] 8.2 mg/dL Low 8.4-10.2 [facility] ([place]) Comment on above: Performed By: #### C BC, ANEU, ADIFF, BMP #### [address] [address] #### GFR #### [address] [address] Chloride [Moles/Vol] 104 mmol/L Normal 98-107 [facility] ([place]) Comment on above: Performed By: #### C BC, ANEU, ADIFF, BMP #### [address] [address] #### GFR #### [address] [address] CO2 [Moles/Vol] 30 mmol/L High 22-29 [facility] ([place]) Comment on above: Performed By: #### C BC, ANEU, ADIFF, BMP #### [address] [address] #### GFR #### [address] [address] Creatinine [Mass/Vol] 0.90 mg/dL Normal 0.55-1.02 [facility] ([place]) Comment on above: Performed By: #### C BC, ANEU, ADIFF, BMP #### [address] [address] #### GFR #### [address] [address] Electrolyte Balance 6.0 mEq/L Normal [facility] ([place]) Comment on above: Performed By: #### C BC, ANEU, ADIFF, BMP #### [address] [address] #### GFR #### [address] [address] Glucose [Mass/Vol] 118 mg/dL High 70-105 [facility] ([place]) Comment on above: Performed By: #### C BC, ANEU, ADIFF, BMP #### [place] [address] #### GFR #### [address] [address] Potassium [Moles/Vol] 3.6 mmol/L Normal 3.5-5.1 [facility] ([place]) Comment on above: Performed By: #### C BC, ANEU, ADIFF, BMP #### [address] [address] #### GFR #### [address] [address] Sodium [Moles/Vol] 140 mmol/L Normal 136-145 [facility] ([place]) Comment on above: Performed By: #### C BC, ANEU, ADIFF, BMP #### [place] [address] #### GFR #### [address] [address] Urea nitrogen [Mass/Vol] 19 mg/dL High 7-18 [facility] ([place]) Comment on above: Performed By: #### C BC, ANEU, ADIFF, BMP #### [address] [address] #### GFR #### [place] [address] CBCon 06-08-2021 Erythrocyte distribution width (RBC) [Ratio] 13.3 % Normal 11.5-14.5 [facility] ([place]) Comment on above: Performed By: #### C BC, ANEU, ADIFF, BMP #### [place] [address] #### GFR #### [place] [address] Hematocrit (Bld) [Volume fraction] 37.2 % Normal 37.0-47.0 [facility] ([place]) Comment on above: Performed By: #### C BC, ANEU, ADIFF, BMP #### [place] [address] #### GFR #### [place] [address] Hgb 12.7 G/dL Normal 12.0-16.0 [facility] ([place]) Comment on above: Performed By: #### C BC, ANEU, ADIFF, BMP #### [place] [address] #### GFR #### [place] [address] MCH (RBC) [Entitic mass] 33.1 pg High 27.0-31.2 [facility] ([place]) Comment on above: Performed By: #### C BC, ANEU, ADIFF, BMP #### [place] [address] #### GFR #### [place] [address] MCHC 34.1 G/dL Normal 33.0-37.0 [facility] ([place]) Comment on above: Performed By: #### C BC, ANEU, ADIFF, BMP #### [place] [address] #### GFR #### [place] [address] MCV (RBC) [Entitic vol] 97.3 fL High 80.0-94.0 [facility] ([place]) Comment on above: Performed By: #### C BC, ANEU, ADIFF, BMP #### [address] [address] #### GFR #### [place] [address] Platelet 210 10 3/mcL Normal 130-400 [facility] ([place]) Comment on above: Performed By: #### C BC, ANEU, ADIFF, BMP #### [place] [address] #### GFR #### [place] [address] Platelet mean volume (Bld) [Entitic vol] 7.9 fL Normal 7.4-10.4 [facility] ([place]) Comment on above: Performed By: #### C BC, ANEU, ADIFF, BMP #### [place] [address] #### GFR #### [place] [address] RBC 3.82 10 6/mcL Low 4.20-5.40 [facility] ([place]) Comment on above: Performed By: #### C BC, ANEU, ADIFF, BMP #### [place] [address] #### GFR #### [place] [address] WBC 7.30 10 3/mcL Normal 4.60-10.80 [facility] ([place]) Comment on above: Performed By: #### C BC, ANEU, ADIFF, BMP #### [place] [address] #### GFR #### [place] [address] XR FLUORO 1-2 HRS TECH TIMEo n 06-08-2021 XR FLUORO 1-2 HRS TECH TIME ORIGINAL EXAMINATION: SPOT FLUOROSCOPIC IMAGES 06/08/2021 12:21 pm TECHNIQUE: Fluoroscopy was provided by the radiology department for procedure. Radiologist was not present during examination. FLUOROSCOPY DOSE AND TYPE OR TIME AND EXPOSURES: Fluoro Time: 11.7 seconds Dose: 8.14 mGy Images: 2 COMPARISON: None HISTORY: ORDERING SYSTEM PROVIDED HISTORY: Reason for Exam: lumbar laminectomy decompression Intraprocedural imaging. FINDINGS: 2 spot images of the lumbar spine were obtained. They demonstrate intraoperative instrumentation at the approximate L3-L4 to L4 level . IMPRESSION: Intraprocedural fluoroscopic spot images as above. See separate procedure report for more information. Interpreted by: Rex Herron DO Preliminary Report By: Rex Herron DO Electronically signed By Rex Herron DO Dictated Date: 06/08/2021 12:51:36 PM Prelim Date: 06/08/2021 12:52:42 PM Sign Date: 06/08/2021 12:52:42 PM Ordering Provider: RISSA MURRY [facility] ([place]) XR Foot - right AP and Later al and obliqueon 04-15-2021 IMPRESSION: Findings are suggestive of degenerative changes of the first metatarsophalangeal joint. [employer] Supervisor: PSCB Transcribe Date/Time: Apr 15 2021 12:07P Dictated by : ARIANA TEJEDA MD This examination was interpreted and the report reviewed and electronically signed by: ARIANA TEJEDA MD on Apr 15 2021 12:10PM [facility] DIVISION OF RADIOLOGY * * *Final Report* * * DATE OF EXAM: Apr 15 2021 12:00PM WOX 5337 - XR FOOT 3V AP/LAT/OBL RT / PROCEDURE REASON: Foot pain, right * * * * Physician Interpretation * * * * EXAM TITLE: XR FOOT 3V AP/LAT/OBL RT EXAM DATE/TIME: 04/15/2021 12:00 PM COMPARISON: None CLINICAL INDICATION/HISTORY: Pain throughout the top of the foot. TECHNIQUE: AP, lateral and oblique views of the right foot are presented. FINDINGS: No acute fractures or subluxations are noted. First metatarsophalangeal joint space narrowing is demonstrated, with osteophyte formation along its lateral aspect. The mineralization of the bones is normal. There is no significant soft tissue swelling. DIVISION OF RADIOLOGY Provider, [facility] - 04/15/2021 * * *Final Report* * * DATE OF EXAM: Apr 15 2021 12:00PM WOX [id number] - XR FOOT 3V AP/LAT/OBL RT / PROCEDURE REASON: Foot pain, right * * * * Physician Interpretation * * * * EXAM TITLE: XR FOOT 3V AP/LAT/OBL RT EXAM DATE/TIME: 04/15/2021 12:00 PM COMPARISON: None CLINICAL INDICATION/HISTORY: Pain throughout the top of the foot. TECHNIQUE: AP, lateral and oblique views of the right foot are presented. FINDINGS: No acute fractures or subluxations are noted. First metatarsophalangeal joint space narrowing is demonstrated, with osteophyte formation along its lateral aspect. The mineralization of the bones is normal. There is no significant soft tissue swelling. IMPRESSION IMPRESSION: Findings are suggestive of degenerative changes of the first metatarsophalangeal joint. [employer] Supervisor: RADHA Transcribe Date/Time: Apr 15 2021 12:07P Dictated by : ARIANA TEJEDA MD This examination was interpreted and the report reviewed and electronically signed by: ARIANA TEJEDA MD on Apr 15 2021 12:10PM EST [facility] Radiology Study observation (narrative) [facility] XR Foot - right AP and Later al and obliqueOrdered By: Ccf Provider on 04-15-2021 [facility] Vital Signs Date Time Vital Sign Value Performing Clinician Facility 07-17-2023 21:54-0500 Blood Pressure Cuff Size LIZETTE [facility]ELA [facility] 07-17-2023 21:54-0500 Blood Pressure Location LIZETTE VARELA [facility] 07-17-2023 21:54-0500 Blood Pressure Method LIZETTE VARELA [facility] 07-17-2023 21:54-0500 Body height 157.5 cm LIZETTE VARELA [facility] 07-17-2023 21:54-0500 Body temperature 96.98 [degF] LIZETTE VARELA MD [facility] 07-17-2023 21:54-0500 Body weight 68.2 kg LIZETTE VARELA [facility] 07-17-2023 21:54-0500 Diastolic Blood Pressure Non-Invasive 87 1 LIZETTE VARELA [facility] 07-17-2023 21:54-0500 Heart rate 94 /min LIZETTE VARELA MD [facility] 07-17-2023 21:54-0500 Reason For Taking VItal Signs LIZETTE VARELA MD [facility] 07-17-2023 21:54-0500 Respiratory rate 18 /min LIZETTE VARELA MD [facility] 07-17-2023 21:54-0500 Systolic Blood Pressure Non-Invasive 144 1 LIZETTE VARELA [facility] 07-17-2023 18:06-0500 Body height 157.48 cm [facility] 07-17-2023 18:06-0500 Body temperature 97.6 [degF] [facility] 07-17-2023 18:06-0500 Diastolic blood pressure 93 mm[Hg] [facility] 07-17-2023 18:06-0500 Heart rate 99 /min [facility] 07-17-2023 18:06-0500 Respiratory rate 22 /min [facility] 07-17-2023 18:06-0500 SaO2% (BldA) [Mass fraction] 99 % [facility] 07-17-2023 18:06-0500 Systolic blood pressure 145 mm[Hg] [facility] 05-28-2023 13:57-0400 Body temperature 97.81 [degF] Marie Blood APRN.CNP Work Phone: [facility] 05-28-2023 13:57-0400 Body weight 67.22 kg Marie Praisler-Wood HARDWARE ASSEMBLER.ORDER PACKER OR PACKAGER Work Phone: [facility] 05-28-2023 13:57-0400 Diastolic blood pressure 84 mm[Hg] Marie Praisler-Wood HARDWARE ASSEMBLER.ORDER PACKER OR PACKAGER Work Phone: [facility] 05-28-2023 13:57-0400 Heart rate 95 /min Marie Praisler-Wood HARDWARE ASSEMBLER.ORDER PACKER OR PACKAGER Work Phone: [facility] 05-28-2023 13:57-0400 Respiratory rate 18 /min Marie Praisler-Wood HARDWARE ASSEMBLER.ORDER PACKER OR PACKAGER Work Phone: [facility] 05-28-2023 13:57-0400 SaO2% (BldA) [Mass fraction] 98 % Marie Praisler-Wood HARDWARE ASSEMBLER.ORDER PACKER OR PACKAGER Work Phone: [facility] 05-28-2023 13:57-0400 Systolic blood pressure 136 mm[Hg] Marie Praisler-Wood HARDWARE ASSEMBLER.ORDER PACKER OR PACKAGER Work Phone: [facility] 05-12-2022 01:13-0400 Body height 157.[address] Feliciano Jacobson Work Phone: [facility] Work Phone: 05-12-2022 01:13-0400 Body mass index (BMI) [Ratio] 28.8 kg/m2 Dr. Feliciano Jacobson Work Phone: [facility] Work Phone: 05-12-2022 01:13-0400 Body temperature 97.8 [degF] Dr. Feliciano Jacobson Work Phone: [facility] Work Phone: 05-12-2022 01:13-0400 Body weight 71.[address] Feliciano Jacobson Work Phone: [facility] Work Phone: 05-12-2022 01:13-0400 Diastolic blood pressure 88 mm[Hg] Dr. Feliciano Jacobson Work Phone: [facility] Work Phone: 05-12-2022 01:13-0400 Heart rate 107 /min Dr. Feliciano Jacobson Work Phone: [facility] Work Phone: 05-12-2022 01:13-0400 Respiratory rate 20 /min Dr. Feliciano Jacobson Work Phone: [facility] Work Phone: 05-12-2022 01:13-0400 SaO2% (BldA) [Mass fraction] 98 % Dr. Feliciano Jacobson Work Phone: [facility] Work Phone: 05-12-2022 01:13-0400 Systolic blood pressure 136 mm[Hg] Dr. Feliciano Jacobson Work Phone: [facility] Work Phone: 04-24-2022 13:12-0400 Body mass index (BMI) [Ratio] 28 kg/m2 Dr. Feliciano Jacobson Work Phone: [facility] Work Phone: 04-24-2022 13:12-0400 Body temperature 97.5 [degF] Dr. Feliciano Jacobson Work Phone: [facility] Work Phone: 04-24-2022 13:12-0400 Body weight 69.[address] Feliciano Jacobson Work Phone: [facility] Work Phone: 04-24-2022 13:12-0400 Diastolic blood pressure 70 mm[Hg] Dr. Feliciano Jacobson Work Phone: [facility] Work Phone: 04-24-2022 13:12-0400 Heart rate 98 /min Dr. Feliciano Jacobson Work Phone: [facility] Work Phone: 04-24-2022 13:12-0400 Respiratory rate 18 /min Dr. Feliciano Jacobson Work Phone: [facility] Work Phone: 04-24-2022 13:12-0400 SaO2% (BldA) [Mass fraction] 97 % Dr. Feliciano Jacobson Work Phone: [facility] Work Phone: 04-24-2022 13:12-0400 Systolic blood pressure 124 mm[Hg] Dr. Feliciano Jacobson Work Phone: [facility] Work Phone: 04-23-2022 08:00-0400 Body height 157.5 cm RISSA MURRY [facility] 04-23-2022 08:00-0400 Body weight 72 kg RISSA MURRY DO [facility] 04-23-2022 08:00-0400 Body weight 29.02 kg/m2 RISSA MURRY DO [facility] 04-23-2022 08:00-0400 diastolic 82 mm[Hg] RISSA MURRY DO [facility] 04-23-2022 08:00-0400 Heart rate 88 /min RISSA MURRY DO [facility] 04-23-2022 08:00-0400 Respiratory rate 18 /min RISSA MURRY DO [facility] 04-23-2022 08:00-0400 systolic 128 mm[Hg] RISSA MURRY DO [facility] 03-04-2022 00:13-0400 Body height 157.[address] Feliciano Jacobson Work Phone: [facility] Work Phone: 03-04-2022 00:13-0400 Body mass index (BMI) [Ratio] 28.8 kg/m2 Dr. Feliciano Jacobson Work Phone: [facility] Work Phone: 03-04-2022 00:13-0400 Body temperature 97.6 [degF] Dr. Feliciano Jacobson Work Phone: [facility] Work Phone: 03-04-2022 00:13-0400 Body weight 71.[address] Feliciano Jacobson Work Phone: [facility] Work Phone: 03-04-2022 00:13-0400 Diastolic blood pressure 83 mm[Hg] Dr. Feliciano Jacobson Work Phone: [facility] Work Phone: 03-04-2022 00:13-0400 Heart rate 103 /min Dr. Feliciano Jacobson Work Phone: [facility] Work Phone: 03-04-2022 00:13-0400 Respiratory rate 20 /min Dr. Feliciano Jacobson Work Phone: [facility] Work Phone: 03-04-2022 00:13-0400 SaO2% (BldA) [Mass fraction] 98 % Dr. Feliciano Jacobson Work Phone: [facility] Work Phone: 03-04-2022 00:13-0400 Systolic blood pressure 141 mm[Hg] Dr. Feliciano Jacobson Work Phone: [facility] Work Phone: 11-20-2021 15:24-0400 Body temperature 96.4 [degF] Dr. Feliciano Jacobson Work Phone: [facility] Work Phone: 11-20-2021 15:24-0400 Body weight 73.[address] Feliciano Jacobson Work Phone: [facility] Work Phone: 11-20-2021 15:24-0400 Diastolic blood pressure 92 mm[Hg] Dr. Feliciano Jacobson Work Phone: [facility] Work Phone: 11-20-2021 15:24-0400 Heart rate 88 /min Dr. Feliciano Jacobson Work Phone: [facility] Work Phone: 11-20-2021 15:24-0400 Respiratory rate 16 /min Dr. Feliciano Jacobson Work Phone: [facility] Work Phone: 11-20-2021 15:24-0400 SaO2% (BldA) [Mass fraction] 99 % Dr. Feliciano Jacobson Work Phone: [facility] Work Phone: 11-20-2021 15:24-0400 Systolic blood pressure 140 mm[Hg] Dr. Feliciano Jacobson Work Phone: [facility] Work Phone: 11-13-2021 17:27-0500 Body mass index (BMI) [Ratio] 29.2 kg/m2 Dr. Feliciano Jacobson Work Phone: [facility] Work Phone: 11-13-2021 17:27-0500 Body temperature 97.4 [degF] Dr. Feliciano Jacobson Work Phone: [facility] Work Phone: 11-13-2021 17:27-0500 Body weight 72.[address] Feliciano Jacobson Work Phone: [facility] Work Phone: 11-13-2021 17:27-0500 Diastolic blood pressure 94 mm[Hg] Dr. Feliciano Jacobson Work Phone: [facility] Work Phone: 11-13-2021 17:27-0500 Heart rate 101 /min Dr. Feliciano Jacobson Work Phone: [facility] Work Phone: 11-13-2021 17:27-0500 Respiratory rate 16 /min Dr. Feliciano Jacobson Work Phone: [facility] Work Phone: 11-13-2021 17:27-0500 SaO2% (BldA) [Mass fraction] 98 % Dr. Feliciano Jacobson Work Phone: [facility] Work Phone: 11-13-2021 17:27-0500 Systolic blood pressure 163 mm[Hg] Dr. Feliciano Jacobson Work Phone: [facility] Work Phone: Encounters Encounter Date Encounter Type Care Provider Facility Start: 07-17-2023 End: 07-18-2023 Emergency department patient visit LIZETTE VARELA MD Facility:B Start: 07-17-2023 End: 07-17-2023 Emergency department patient visit LIZETTE VARELA MD [facility] Start: 07-17-2023 End: 07-17-2023 Emergency department patient visit Raymond Michaels Facility:[facility] Start: 07-17-2023 End: 07-17-2023 Emergency department patient visit [facility]Emergency [facility] Work Phone: Start: 05-28-2023 End: 05-28-2023 ambulatory Facility:[facility] Start: 05-28-2023 End: 05-28-2023 Patient encounter procedure Marie Blood APRN.CNP Work Phone: [facility] Comment on above: Itching (Primary Dx) Start: 05-12-2022 End: 05-12-2022 Emergency department patient visit Dr. Feliciano Jacobson Work Phone: [facility]-Emergency Department Start: 04-24-2022 End: 04-24-[address] Feliciano Jacobson Work Phone: [facility] Start: 04-23-2022 End: 04-23-2022 Patient encounter procedure RISSA MURRY DO [facility] Start: 04-23-2022 End: 04-23-2022 Admission to establishment RIS[facility] MUR[facility] Start: 03-21-2022 End: 03-21-2022 Patient encounter procedure Renee Browne Work Phone: Podiatry Comment on above: Neuropathy - (NOS) ( Primary Dx); Neuroma; Onychomycosis; Pain in toe of left foot; Pain in toe of right foot Start: 03-21-2022 End: 03-21-2022 Subsequent hospital visit by physician [facility] Work Phone: Radiology Comment on above: Pain [R52] Start: 03-04-2022 End: 03-04-2022 Emergency department patient visit Dr. Feliciano Jacobson Work Phone: [facility]-Emergency Department Start: 11-20-2021 End: 11-20-[address] Feliciano Jacobson Work Phone: [facility]-Laboratory, [facility] Start: 11-13-2021 End: 11-13-2021 Emergency department patient visit Dr. Feliciano Jacobson Work Phone: [facility]-Emergency Department Start: 06-20-[address] Eva Jacobson Work Phone: [facility] Start: 04-15-2021 End: 04-15-2021 Subsequent hospital visit by physician [facility] Work Phone: Radiology Comment on above: Foot pain, right [M7 9.671] Start: 01-12-2009 End: 03-24-2012 Patient encounter status [facility] [place] Work Phone: [facility] Procedures Date Procedure Procedure Detail Performing Clinician Start: 07-17-2023 Plain X-ray of tibia and fibula Start: 03-21-2022 Radex foot complete minimum 3 views Renee Browne Work Phone: Start: 06-08-2021 Back structure, excl uding neck (body structure) RISSA MURRY DO Comment on above: L4 decompression schreiber inectomy Start: 04-15-2021 Radex foot complete minimum 3 views Joyce Patel HARDWARE ASSEMBLER.ORDER PACKER OR PACKAGER Work Phone: Start: 09-09-2018 Decompression of med vashti nerve RISSA MURRY DO Start: 09-09-2016 Ligation of fallopian tube RISSA MURRY DO Start: 04-07-2014 Colonoscopy Marie Roland HARDWARE ASSEMBLER.ORDER PACKER OR PACKAGER Work Phone: Start: 01-13-2014 Lipid 1996 panel - S calvin or Plasma Marie Blood HARDWARE ASSEMBLER.ORDER PACKER OR PACKAGER Work Phone: 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 RISSA MURRY DO Ligation of fallopian tube J MARITA MURRY DO Plan of Treatment Date Care Activity Detail Author Start: 04-14-2031 Urine microalbumin profile DTaP,Tdap,Td Vaccine (2 - Td or Tdap) [facility] Start: 05-10-2024 Covid-19 Vaccine ( season) Covid-19 Vaccine ( season) [facility] Start: 05-10-2024 Influenza vaccination Influenza Vaccine (#1) [facility] Start: 05-10-2023 Influenza vaccination Influenza Vaccine (#1) [facility] Start: 04-04-2023 HPV Testing HPV Testing [facility] Start: 04-04-2023 Pap Testing Pap Testing [facility] Start: 04-04-2023 Screening for malignant neoplasm of cervix Cervical Cancer Screening [facility] Start: 09-09-2022 Depression Assessment Depression Assessment [facility] Start: 05-10-2022 Influenza vaccination INFLUENZA (#1) [facility] Start: 03-08-2022 Mammography Mammogram Screening [facility] Start: 03-08-2022 Screening for malignant neoplasm of breast Mammogram Screening [facility] Start: 03-04-2022 Patient discharge [facility] Work Phone: Start: 11-20-2021 Patient referral [facility] Work Phone: Start: 11-13-2021 Smpl repair scalp/neck/ax/genit/trun k 2.6-7.5cm RPR S/N/AX/GEN/TRNK2.6-7.5CM [facility] Work Phone: Start: 05-06-2021 Diabetes Screening Diabetes Screening [facility] Start: 04-07-2019 Colonoscopy Colonoscopy [facility] Start: 04-07-2019 Colorectal Cancer Screening Colorectal Cancer Screening [facility] Start: 04-07-2019 Screening for malignant neoplasm of colon [facility] Start: 01-13-2019 Lipid 1996 panel - Serum or Plasma Lipid Screening [facility] Start: 01-13-2019 Lipid panel Lipid Screening [facility] Start: 2014 SHINGRIX VACCINE (1 of 2) SHINGRIX VACCINE (1 of 2) [facility] Start: 2009 COLOGUARD (FIT-DNA) COLOGUARD (FIT-DNA) [facility] Start: 2009 Colonoscopy COLONOSCOPY [facility] Start: 2009 COLORECTAL CANCER SCREENING COLORECTAL CANCER SCREENING [facility] Start: [address] COLONOGRAPHY [facility] Start: 2009 DIABETES SCREEN DIABETES SCREEN [facility] Start: 2009 FECAL OCCULT BLOOD FECAL OCCULT BLOOD [facility] Start: 2009 LIPID SCREEN LIPID SCREEN [facility] Start: 2009 Screening for malignant neoplasm of colon [facility] Start: 2009 SIGMOIDOSCOPY SIGMOIDOSCOPY [facility] Start: 2004 Mammography MAMMOGRAM [facility] Start: 1994 HPV TESTING HPV TESTING [facility] Start: 1985 PAP TESTING PAP TESTING [facility] Start: 1983 Urine microalbumin profile DTAP,TDAP,TD (1 - Tdap) [facility] Start: 1982 Anxiety Screening Anxiety Screening [facility] Start: 1982 Depression Screening Depression Screening [facility] Start: 1982 HEPATITIS C SCREENING HEPATITIS C SCREENING [facility] Start: 1982 HIV SCREENING HIV SCREENING [facility] Start: 1982 HIV screening HIV Screening [facility] Start: 1976 Adult depression screening assessment DEPRESSION SCREENING [facility] Start: 1970 PNEUMOCOCCAL (1 - PCV) PNEUMOCOCCAL (1 - PCV) [facility] Start: 1970 [facility]neum[facility] Start: 1964 COVID-19 VACCINE (#1) COVID-19 VACCINE (#1) [facility] Start: 1964 Hepatitis B Vaccine (1 of 3 - 3-dose series) Hepatitis B Vaccine (1 of 3 - 3-dose series) [facility] Patient Education [facility] Work Phone: Patient referral [facility] Work Phone: XR FOOT GENERAL 3V AP/LAT/OBL BILATERAL XR FOOT GENERAL 3V AP/LAT/OBL BILATERAL Radiology Routine Pain 03/21/2022 3:00 PM EDT [facility] Work Phone: XR Pelvis and Hip Views [facility] Work Phone: Immunizations Immunization Date Immunization Notes Care Provider Susan meza 04-14-2021 tetanus toxoid, redu celi diphtheria toxoid, and acellular pertussis vaccine, adsorbed RISSA MURRY DO [facility] 06-19-2018 tetanus and diphther ia toxoids, adsorbed, preservative free, for adult use (5 Lf of tetanus toxoid and 2 Lf of diphtheria toxoid) RISSA LOVELY DO [facility] 06-19-2018 influenza virus vaccine, unspecified formulation Marie Blood APRN.ORDER PACKER OR PACKAGER Work Phone: [facility] 06-23-2009 influenza virus vaccine, unspecified formulation Marie Blood APRN.ORDER PACKER OR PACKAGER Work Phone: [facility] 09-24-2007 tetanus and diphther ia toxoids, adsorbed, preservative free, for adult use (2 Lf of tetanus toxoid and 2 Lf of diphtheria toxoid) Marie Blood APRN.ORDER PACKER OR PACKAGER Work Phone: [facility] Work Phone: Payers Date Payer Category Payer Self-pay [id number] [facility] 20[facility] Medicare UHC MEDICARE UHC DUAL COMPLETE HMO POS SNP [id number] 2023-Present [phone] [address] [place] [address] Medicare [id number] 2023 Unknown [id number] 2019 Medicaid [place] [id number] 2019-Present [phone] [address] [place] [address] Medicaid [id number] 2019 Medicaid [place] [facility] [id number] 2019-2022 [address] [place] [address] Medicaid [id number] 2014 Medicaid [id number] 2014 Unknown [id number] 1965 Unknown [id number] Unknown [id number] Social History Date Type Detail Facility Start: 03-04-2022 End: 05-31-2022 Tobacco smoking status HIIS Unknown if ever smoked [facility] Start: 08-26-2019 Rare [facility] Start: 08-26-2019 None [facility] Start: 08-26-2019 Alone [facility] Start: 08-26-2019 Cigarettes [facility] Start: 1965 Sex Assigned At Female [facility] Start: 03-08-2021 End: 03-21-2022 Tobacco smoking status NHIS Smokes tobacco daily [facility] Work Phone: History of tobacco use Cigarette Smoker C [facility] Work Phone: Start: 08-14-2020 End: 03-21-2022 Cigarettes smoked current (pack per day) - Reported 0.5 [facility] Start: 03-08-2021 End: 03-21-2022 Tobacco use and exposure Smokeless tobacco non-user [facility] Work Phone: Start: 04-14-2021 End: 03-21-2022 Alcohol intake Current drinker of alcohol (finding) [facility] Start: 03-21-2022 History SDOH Alcohol Comment occationally [facility] Start: 1965 Sex Assigned At Not on file C [facility] Start: 03-16-2021 End: 03-21-2022 Exposure to SARS-CoV-2 (event) Not sure [facility] Start: 06-08-2021 Tobacco smoking status Light t obacco smoker (finding) [facility] Start: 08-14-2020 End: 05-28-2023 Tobacco use panel [facility] Adult Depression Screening Assessment 5 [facility] Start: 09-04-2018 Alcohol Comment Only on the weekend [facility] Functional Status Date Assessment Result Facility 07-17-2023 Functional Status Independent [facility] 07-17-2023 Functional Status Awake, [facility] 04-23-2022 Functional Status Sensory Deficits None [facility] Mental Status Date Assessment Result Facility 07-17-2023 Mental Status Orientation Oriented x 4 [facility] 07-17-2023 Mental Status [facility] Clinical Notes 04-11-2012 to 07-18-2023 Patient InstructionsMary-Marie Kennedy APRN.ORDER PACKER OR PACKAGER - 05/28/2023 2:08 PM EDTPatient InstructionsMattyaniv Testrake - 03/21/2022 4:04 PM Radha Martinez LPN - 03/21/2022 3:14 PM EDT Note Date & Type Note Facility 07-18-2023 Hospital Discharge instructions Patient Education 07/17/2023 22:52:48 Soft Tissue Contusion Soft Tissue Contusion You have a contusion. This is also called a bruise. There is swelling and some bleeding under the skin. This injury generally takes a few days to a few weeks to heal. During that time, the bruise will typically change in color from reddish, to purple-blue, to greenish-yellow, then to yellow-brown. Home care Elevate the injured area to reduce pain and swelling. As much as possible, sit or lie down with the injured area raised about the level of your heart. This is especially important during the first 48 hours. Ice the injured area to help reduce pain and swelling. Wrap a cold source (ice pack or ice cubes in a plastic bag) in a thin towel. Apply to the bruised area for 20 minutes every 1 to 2 hours the first day. Continue this 3 to 4 times a day until the pain and swelling goes away. Unless another medicine was prescribed, you can take acetaminophen, ibuprofen, or naproxen to control pain. (If you have chronic liver or kidney disease or ever had a stomach ulcer or gastrointestinal bleeding, talk with your doctor before using these medicines.) Follow-up care Follow up with your healthcare provider or our staff as advised. Call if you are not better in 1 to 2 weeks. When to seek medical advice Call your healthcare provider right away if you have any of the following: Increased pain or swelling Bruise is on an arm or leg and arm or leg becomes cold, blue, numb or tingly Signs of infection: Warmth, drainage, or increased redness or pain around the contusion Inability to move the injured area or body part Bruise is near your eye and you have problems with your eyesight or eye Frequent bruising for unknown reasons [id number] [employer]. [address] [place] [address]80. All rights reserved. This information is not intended as a substitute for professional medical care. Always follow your healthcare professional's instructions. Follow Up Care 07/17/2023 21:49:51 With:FELICIANO JACOBSON MD Address: [address] [address] [phone] When:2-4 days Comments:Make an appointment in 2 to 4 days with your physician. Return if you are worse in any way. [facility] 07-17-2023 Note Discharge Instructions Thank you for allowing [facility] to assist you with your healthcare needs. The following is important discharge information regarding your hospital visit. Diagnosis from Today's Visit Contusion Leg injury - Minor What to Do Next Instructions from Your Care Team No qualifying data available. Post Acute Orders No qualifying data available. You Need to Schedule the Following Appointments Follow Up with FELICIANO JACOBSON MD When Within 2-4 days Why: Make an appointment in 2 to 4 days with your physician. Return if you are worse in any way. Where: [address] [place] [address]- [phone] Allergies gabapentin penicillin Medications Please ask your primary doctor or pharmacist before taking any other medication not listed, including over the counter drugs, herbal medications, vitamins and or supplements as they may interact with your home medications. What How Much When Instructions Last Dose New naproxen (naproxen 500 mg oral tablet) 1 tab(s) by mouth Two (2) times a day Duration: 5 Days Printed Prescription Unchanged acetaminophen (acetaminophen 500 mg oral capsule) 2 cap by mouth Every 4 hours as needed for for pain Unchanged amLODIPine (amLODIPine 10 mg oral tablet) 1 tab(s) by mouth Once a day Unchanged cyclobenzaprine (cyclobenzaprine 10 mg oral tablet) TAKE 1 TABLET BY MOUTH AT BEDTIME NEEDED Unchanged ibuprofen (ibuprofen 600 mg oral tablet) 1 tab(s) by mouth Every 8 hours Take with food or milk. Unchanged multivitamin (Multivitamin) 1 tab(s) by mouth Every day Please take this list to your next doctor s visit. Bring all medications you take, including over the counter medications, herbals and other supplements with you to your doctor s visit. Patients and families are reminded to discard old lists and to update any records with all medication providers or retail pharmacies. Medication Leaflets naproxen (na PROX en) Aleve, Aleve Back and Muscle Pain, Aleve Easy Open Arthritis, Aleve Liquid Gels, Anaprox-DS, EC-Naprosyn, Naprelan, Naprosyn What is the most important information I should know about naproxen? Naproxen can increase your risk of fatal heart attack or stroke. Do not use this medicine just before or after heart bypass surgery (coronary artery bypass graft, or CABG). Naproxen may also cause stomach or intestinal bleeding, which can be fatal. What is naproxen? Naproxen is a nonsteroidal anti-inflammatory drug (NSAID). Naproxen is used to treat pain or inflammation caused by conditions such as arthritis, ankylosing spondylitis, tendinitis, bursitis, gout, or menstrual cramps. The delayed-release or extended-release tablets are slower-acting forms of naproxen that are used only for treating chronic conditions such as arthritis or ankylosing spondylitis. These forms of naproxen will not work fast enough to treat acute pain. Naproxen may also be used for purposes not listed in this medication guide. What should I discuss with my healthcare provider before taking naproxen? Naproxen can increase your risk of fatal heart attack or stroke, even if you don't have any risk factors. Do not use this medicine just before or after heart bypass surgery (coronary artery bypass graft, or CABG). Naproxen may also cause stomach or intestinal bleeding, which can be fatal. These conditions can occur without warning while you are using naproxen, especially in older adults. You should not use naproxen if you are allergic to it, or if you have ever had an asthma attack or severe allergic reaction after taking aspirin or an NSAID. Ask a doctor before giving naproxen to a child younger than 12 years old. Ask a doctor or pharmacist if this medicine is safe to use if you have: heart disease, high blood pressure, high cholesterol, diabetes, or if you smoke; a heart attack, stroke, or blood clot; stomach ulcers or bleeding; asthma; liver or kidney disease; fluid retention; or if you take aspirin to prevent heart attack or stroke. If you are , you should not take naproxen unless your doctor tells you to. Taking an NSAID during the last 20 weeks of can cause serious heart or kidney problems in the unborn baby and possible complications with your . It may not be safe to breastfeed while using this medicine. Ask your doctor about any risk. How should I take naproxen? Use exactly as directed on the label, or as prescribed by your doctor. Use the lowest dose that is effective in treating your condition. Shake the oral suspension (liquid) before you measure a dose. Measure a dose with the supplied measuring device (not a kitchen spoon). Take this medicine with food or milk if it upsets your stomach. Always follow directions on the medicine label about giving this medicine to a child. Naproxen doses are based on weight in children. Your child's dose needs may change if the child gains or loses weight. If you use naproxen long-term, you may need frequent medical tests. This medicine can affect the results of certain medical tests. Tell any doctor who treats you that you are using naproxen. Store at room temperature away from moisture, heat, and light. Keep the bottle tightly closed when not in use. What happens if I miss a dose? Since naproxen is used when needed, you may not be on a dosing schedule. Skip any missed dose if it's almost time for your next dose. Do not use two doses at one time. What happens if I overdose? Seek emergency medical attention or call the Poison Help line at . What should I avoid while taking naproxen? Avoid drinking alcohol. It may increase your risk of stomach bleeding. Avoid taking aspirin or other NSAIDs unless your doctor tells you to. Ask a doctor or pharmacist before using other medicines for pain, fever, swelling, or cold/flu symptoms. They may contain ingredients similar to naproxen (such as aspirin, ibuprofen, or ketoprofen). Ask your doctor before using an antacid, and use only the type your doctor recommends. Some antacids can make it harder for your body to absorb naproxen. What are the possible side effects of naproxen? Get emergency medical help if you have signs of an allergic reaction (runny or stuffy nose, wheezing or trouble breathing, hives, swelling in your face or throat) or a severe skin reaction (fever, sore throat, burning eyes, skin pain, red or purple skin rash with blistering and peeling). Stop using naproxen and seek medical treatment if you have a serious drug reaction that can affect many parts of your body. Symptoms may include skin rash, fever, swollen glands, muscle aches, severe weakness, unusual bruising, or yellowing of your skin or eyes. Get emergency medical help if you have signs of a heart attack or stroke: chest pain spreading to your jaw or shoulder, sudden numbness or weakness on one side of the body, slurred speech, leg swelling, feeling short of breath. Stop using naproxen and call your doctor at once if you have: shortness of breath (even with mild exertion); swelling or rapid weight gain; the first sign of any skin rash or blister, no matter how mild; signs of stomach bleeding--bloody or tarry stools, coughing up blood or vomit that looks like coffee grounds; liver problems--nausea, upper stomach pain, loss of appetite, dark urine, jacky-colored stools, jaundice (yellowing of the skin or eyes); kidney problems--little or no urination, painful urination, swelling in your feet or ankles; or low red blood cells (anemia)--pale skin, unusual tiredness, feeling light-headed or short of breath, cold hands and feet. Common side effects may include: headache; indigestion, heartburn, stomach pain; or flu symptoms; This is not a complete list of side effects and others may occur. Call your doctor for medical advice about side effects. You may report side effects to FDA at 5-820-HOB-8187. What other drugs will affect naproxen? Ask your doctor before using naproxen if you take an antidepressant. Taking certain antidepressants with an NSAID may cause you to bruise or bleed easily. Ask a doctor or pharmacist before using naproxen with any other medications, especially: other NSAIDs or salicylates (diflunisal, salsalate); antacids and sucralfate; cholestyramine; cyclosporine; digoxin; lithium; methotrexate; pemetrexed; probenecid; warfarin (Coumadin, Jantoven) or similar blood thinners; a diuretic or 'water pill'; or heart or blood pressure medication. This list is not complete. Other drugs may affect naproxen, including prescription and dzuv-drv-rhlhgen medicines, vitamins, and herbal products. Not all possible drug interactions are listed here. Where can I get more information? Your pharmacist can provide more information about naproxen. Remember, keep this and all other medicines out of the reach of children, never share your medicines with others, and use this medication only for the indication prescribed. Every effort has been made to ensure that the information provided by [employer]. ('[employer]') is accurate, up-to-date, and complete, but no guarantee is made to that effect. Drug information contained herein may be time sensitive. [employer] information has been compiled for use by healthcare practitioners and consumers in the [place] and therefore [employer] does not warrant that uses outside of the [place] are appropriate, unless specifically indicated otherwise. [employer]'s drug information does not endorse drugs, diagnose patients or recommend therapy. [employer] drug information is an informational resource designed to assist licensed healthcare practitioners in caring for their patients and/or to serve consumers viewing this service as a supplement to, and not a substitute for, the expertise, skill, knowledge and judgment of healthcare practitioners. The absence of a warning for a given drug or drug combination in no way should be construed to indicate that the drug or drug combination is safe, effective or appropriate for any given patient. [employer] does not assume any responsibility for any aspect of healthcare administered with the aid of information [employer] provides. The information contained herein is not intended to cover all possible uses, directions, precautions, warnings, drug interactions, allergic reactions, or adverse effects. If you have questions about the drugs you are taking, check with your doctor, nurse or pharmacist. Copyright 0171-5697 [employer]. Version: 22.. Revision Date: 04/11/2023. Education Materials Soft Tissue Contusion You have a contusion. This is also called a bruise. There is swelling and some bleeding under the skin. This injury generally takes a few days to a few weeks to heal. During that time, the bruise will typically change in color from reddish, to purple-blue, to greenish-yellow, then to yellow-brown. Home care Elevate the injured area to reduce pain and swelling. As much as possible, sit or lie down with the injured area raised about the level of your heart. This is especially important during the first 48 hours. Ice the injured area to help reduce pain and swelling. Wrap a cold source (ice pack or ice cubes in a plastic bag) in a thin towel. Apply to the bruised area for 20 minutes every 1 to 2 hours the first day. Continue this 3 to 4 times a day until the pain and swelling goes away. Unless another medicine was prescribed, you can take acetaminophen, ibuprofen, or naproxen to control pain. (If you have chronic liver or kidney disease or ever had a stomach ulcer or gastrointestinal bleeding, talk with your doctor before using these medicines.) Follow-up care Follow up with your healthcare provider or our staff as advised. Call if you are not better in 1 to 2 weeks. When to seek medical advice Call your healthcare provider right away if you have any of the following: Increased pain or swelling Bruise is on an arm or leg and arm or leg becomes cold, blue, numb or tingly Signs of infection: Warmth, drainage, or increased redness or pain around the contusion Inability to move the injured area or body part Bruise is near your eye and you have problems with your eyesight or eye Frequent bruising for unknown reasons [id number] [employer]. [address] [place] [address]32. All rights reserved. This information is not intended as a substitute for professional medical care. Always follow your healthcare professional's instructions. Additional Information VACCINATE! IT SAVES LIVES! Members of the community who have not yet received the COVID-19 vaccine and would like to receive it can visit one of [facility] vaccine clinics. There are many vaccine clinic locations within the [facility]. For locations and available times, please visit www.gettheshot.coronavirus.[place]. gov/. It is important to note that some COVID mobile vaccine clinics are held outdoors and may be canceled in rainy or stormy conditions. To learn more about pediatric vaccinations (ages 5-11), we invite you to visit the [facility] webpage. https://www.[facility].org/p ages/3906-Wqqwe-Oqwjzutupbl-Freq rrvetm-Coygr-Hussqkixd.html To learn more about the COVID-19 vaccine, we invite you to visit the CDC website for a list of frequently asked questions. https://www.cdc.gov/coronavirus/ 2019-ncov/vaccines/faq.html [facility] Patient Portal Access Instructions: Stay connected with your healthcare team and access your personal medical information anytime with the [facility] Patient Portal. If you would like a full copy of your medical records please contact the [facility] Medical Records Department Saturday through Saturday between 8a.m. and 4:30p.m. Please follow the directions below to access the portal: 1.Access the email account you provided upon registration to the [facility].2.Look for an invitation email from [facility].3.Open the email and access the invitation link: Accept Invitation to [facility].Fill in the required schofield to create your account. Sign into [email or web address] with your username and password that you created in the above steps to stay up to date. You can then view a summary of results, a summary of your visits, and the ability to download your summaries to your computer or send the information securely to a physician. Remember that your healthcare information is confidential, so carefully consider who you will allow to register on the [facility] Patient Portal for access to your information. You can also access the [facility] Patient Portal on the [employer]. Simply click on Health Records under Health Data and then click on the [facility] logo. HOW TO SAFELY DISPOSE OF PRESCRIPTION MEDICATIONS Please use one of the following methods to safely dispose of your unused medications. 1.Use a drug disposal kit: the drug disposal pouch allows you to safely discard your old and unused drugs. Ask your nurse to give you one when you are discharged.2.Visit a local take-back location: Many local pharmacies and police departments have programs that collect old and unwanted prescription drugs. Call your local pharmacy or go to http://[employer].Quincus/3Z0Mn3u to find one close to you.3.Make use of household items: Use cat litter or old coffee grounds to dispose medications if other options are not available. Mix your drugs with these household products, seal them in an airtight container and throw it into the garbage. Call [facility]: [phone] to be sure your drugs can be disposed of in this way. Some medicines may require a different approach.4.Never flush your medications down the toilet. IF YOU HAVE BEEN PRESCRIBED AN OPIOIDS FOR PAIN If you have been prescribed an opioid (such as hydrocodone, oxycodone or morphine), it is critical to understand the possible side effects and risks of opioid pain medications. Even when taken as directed, opioids can have several side effects including: Tolerance, meaning you might need to take more of a medication for the same pain relief. Nausea, vomiting and/or constipation. Sleepiness, dizziness, dry mouth, confusion, depression or itching. Physical dependence, meaning you have withdrawal symptoms when a medication is stopped ? this can develop within a few days. KNOW YOUR RESPONSIBILITIES It is important to know exactly how much and how often to take the opioid pain medications you are prescribed. Never take opioids in higher amounts or more often than prescribed. Do not combine opioids with alcohol or other drugs that cause drowsiness, such as benzodiazepines, also known as benzos, including diazepam and alprazolam, muscle relaxants or sleep aids. Never sell or share prescription opioids. This is illegal. Store opioids in a secure place and out of reach of others (including children, family, friends and visitors). The last page(s) of this document has been signed and retained as a CHART COPY Signatures Patient Education Materials Soft Tissue Contusion Medication Leaflets naproxen My discharge plan and instructions have been reviewed and explained to me and IVANITA VERONICA understand my current condition and have read and understand these discharge instructions. I have received a written copy of the plan/instructions. If I have questions, I am aware that I should contact my doctor. Patient/General Dentist Signature: Date/Time: Relationship to Patient: Witness Name/Signature: Date/Time: [facility] 07-17-2023 Note ORIGINAL EXAMINATION: TWO XRAY VIEWS OF THE RIGHT TIBIA/FIBULA 07/17/2023 10:09 pm COMPARISON: None. HISTORY: ORDERING SYSTEM PROVIDED HISTORY: Reason for Exam: Leg caught in door FINDINGS: No acute fracture or dislocation identified. There is a smoothly marginated osseous density along lateral femoral epicondyle measuring 1.2 cm which may represent a sequela of remote injury or accessory ossicle. There are mild degenerative changes. Chondrocalcinosis. The talar dome is within normal limits. The tibiotalar joint space is normal. No suprapatellar joint effusion. No soft tissue swelling. No radiopaque foreign body. IMPRESSION: No acute fracture or dislocation. Chondrocalcinosis. I have personally reviewed the images of this examination and agree with the resident's findings and interpretation. Interpreted by: Lm Fan Preliminary Report By: Keon Rowe Electronically signed By Lm Fan Dictated Date: 07/17/2023 10:47:51 PM Prelim Date: 07/17/2023 10:50:12 PM Sign Date: 07/17/2023 10:55:52 PM Ordering Provider: LIZETTE VARELA [facility] 05-28-2023 Note HNO ID: [id number] Author: Marie Blood APRN.ORDER PACKER OR PACKAGER Service: ? Author Type: Nurse Practitioner Type: Progress Notes Filed: 05/28/2023 2:13 PM Note Text: Subjective HPI Alecia Bowie is a 57 year old female who presents with itching all over and a rash on her left arm. She notices some dark black tiny specks on her skin and she pulls at them with tweezers and pulls out a tiny hairy ledezma-colored flea or something. Her dog has mange and she has been washing her bedding every day since he was treated. She denies fever or pain. States itching is persistent. Review of Systems Constitutional: Negative for chills and fever. Musculoskeletal: Negative for joint pain and myalgias. Skin: Positive for itching and rash. BP 136/84 Pulse 95 Temp 36.6 ?C (97.8 ?F) (Tympanic) Resp 18 Wt 67.2 kg (148 lb 3.2 oz) LMP 01/07/2014 SpO2 98% BMI 26.25 kg/m? 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 Cone biopsy, pap x 2 after were WNL Colitis Essential hypertension 05/2021 Hemorrhage of rectum and anus Other and unspecified noninfectious gastroenteritis and colitis(558.9) Personal history of allergy to penicillin young adulthood Stroke (HCC) Stroke (HCC) 15 years ago Tobacco use disorder age 14 Vertigo PAST SURGICAL HISTORY Procedure Laterality Date COLONOSCOPY FLX DX W/COLLJ SPEC WHEN PFRMD Colonoscopy COLONOSCOPY FLX DX W/COLLJ SPEC WHEN PFRMD 04/07/14 Colonoscopy COLONOSCOPY W/BIOPSY SINGLE/MULTIPLE 01/07/09 Acute colitis transverse and descending colon CONIZATION CERVIX W/WO DANWA RPR KNIFE/LASER cone biopsy, JALIL III, Dr. Avina ENDOMETRIAL ABLATION WITH US GUIDANCE 2011 ESOPHAGOGASTRODUODENOSCOPY TRANSORAL DIAGNOSTIC 04/07/14 EGD HYSTEROSCOPY,W/ENDOMETRIAL ABLATION 04/2012 benign endometrium LIG/TRNSXJ FLP TUBE ABDL/VAG APPR UNI/BI Tubal ligation LIGATE FALLOPIAN TUBE LOW BACK DISK SURGERY NEUROPLASTY AND/TRANSPOS MEDIAN NRV CARPAL TUNNE Bilateral 09/25/2018 Bilateral carpal tunnel release ALLERGIES Gabapentin, Penicillin G, and Penicillins MEDICATIONS ibuprofen (MOTRIN) 600 mg tablet TAKE 1 TABLET BY MOUTH THREE TIMES DAILY NEEDED FOR PAIN, TAKE WITH FOOD AND LOTS OF WATER permethrin (ELIMITE) 5 % cream Apply 1 application to affected area one time only for 1 dose. massage into skin from neck to feet, leave on 8-12hrs, wash off; Info: repeat 2wks if live mites persist. Itching may persist after effective treatment. acetaminophen (TYLENOL) 500 mg tablet TAKE 2 TABLETS BY MOUTH EVERY 8 HOURS NEEDED FOR PAIN (Patient not taking: Reported on 05/28/2023) amLODIPine (NORVASC) 10 mg tablet Take 10 mg by mouth once daily. (Patient not taking: Reported on 05/28/2023) cyclobenzaprine (FLEXERIL) 10 mg tablet TAKE 1 TABLET BY MOUTH TWICE DAILY NEEDED FOR MUSCLE SPASMS (Patient not taking: Reported on 05/28/2023) nystatin (MYCOSTATIN) powder apply one application topically daily as directed (Patient not taking: Reported on 05/28/2023) estradiol (ESTRACE) 0.01 % (0.1 mg/gram) vaginal cream Use 1 g vaginally as directed. A applicator full in vagina every night x 14 nights then twice a week. (Patient not taking: Reported on 05/28/2023) ibuprofen (MOTRIN) 800 mg tablet Take 1 tablet by mouth every 8 hours as needed. FOR PAIN. (Patient not taking: Reported on 04/14/2021 ) FAMILY HISTORY Problem Relation Age of Onset COPD Mother Thyroid Sister Fibromyalgia Sister Thyroid Sister Fibromyalgia Sister Thyroid Sister Diabetes Sister Hypertension Mother None Father does not go to Dr. Diabetes Sister Coronary Artery Disease Other none Breast Cancer Other great aunt Cancer Paternal Grandmother COPD Maternal Grandmother Social History Tobacco Use Smoking status: Every Day Packs/day: 0.50 Years: 20.00 Additional pack years: 0.00 Total pack years: 10.00 Types: Cigarettes Smokeless tobacco: Never Vaping Use Vaping Use: Never used Substance Use Topics Alcohol use: Yes Alcohol/week: 2.0 standard drinks of alcohol Types: 2 Cans of Beer (12oz) per week Comment: occationally Drug use: Yes Types: Marijuana Comment: no IVDA, snorting Objective Physical Exam Vitals and nursing note reviewed. Constitutional: Appearance: Normal appearance. Skin: General: Skin is warm and dry. Findings: Erythema and rash present. Neurological: Mental Status: She is alert. ASSESSMENT/PLAN: 1. Itching - ICD9: 698.9, ICD10: L29.9 - PERMETHRIN 5 % TOPICAL CREAM - use as directed - Follow-up with your PCP in 3-5 days if symptoms have not improved or sooner if symptoms worsen - Discussed red flags and need for immediate medical evaluation if any occur. - Discussed supportive care treatment with fluids, rest and analgesia. - Discussed expected course of illness Marie Blood APRN.[facility] 09-19-2023 Instructions Marie Blood APRN.[employer] - 05/28/2023 2:09 PM EDT ASSESSMENT/PLAN: 1. Itching - ICD9: 698.9, ICD10: L29.9 - PERMETHRIN 5 % TOPICAL CREAM - use as directed - Follow-up with your PCP in 3-5 days if symptoms have not improved or sooner if symptoms worsen - Discussed red flags and need for immediate medical evaluation if any occur. - Discussed supportive care treatment with fluids, rest and analgesia. - Discussed expected course of illness Marie Blood APRN.[facility] SCABIES: Your exam shows you have scabies, an itchy rash caused by an extremely tiny insect, or mite. The areas of the body most commonly involved are the hands, abdomen, genitals, and thighs. Scabies is spread by direct body contact, or from sharing personal items such as clothes, bed linen, and towels. Treatment for scabies includes: Elimite, or Eurax cream should be used as directed on the package after showering, covering the entire body from the neck to the toes. Leave it on for 8-12 hours. Note: Kwell should not be used on women who are or nursing, or on infants or small children. Consult with your doctor for alternative therapy. Clothing, sheets, pillow cases, and towels should be washed in hot water and machine-dried. Articles which cannot be laundered this way should be drycleaned or put away for 3 days. Over the counter hydrocortisone cream used after a bath or antihistimine medication may be helpful in reducing the itching. The itching can remain present for up to a week after successful treatment. Do not drive or operate heavy machinery while taking antihistamines. Clip your fingernails short and try to avoid scratching the sores. Use cortisone and moisturizer creams after treatment to reduce the itching. Close family members and friends should also be treated, especially if they have any rash or itch. Your doctor may want you to repeat the medication treatment in one week if you still have symptoms of itching or rash, but do not apply the medicine more than twice or you may have a reaction to it. Call your doctor right away if your rash looks infected with sores that get larger or drain pus. documented in this encounter [facility] 05-28-2023 History of Present illness Narrative Images from the original note were not included. Subjective HPI Alecia Bowie is a 57 year old female who presents with itching all over and a rash on her left arm. She notices some dark black tiny specks on her skin and she pulls at them with tweezers and pulls out a tiny hairy ledezma-colored flea or something. Her dog has mange and she has been washing her bedding every day since he was treated. She denies fever or pain. States itching is persistent. Review of Systems Constitutional: Negative for chills and fever. Musculoskeletal: Negative for joint pain and myalgias. Skin: Positive for itching and rash. 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 Cone biopsy, pap x 2 after were WNL Colitis Essential hypertension 05/2021 Hemorrhage of rectum and anus Other and unspecified noninfectious gastroenteritis and colitis(558.9) Personal history of allergy to penicillin young adulthood Stroke (HCC) Stroke (HCC) 15 years ago Tobacco use disorder age 14 Vertigo PAST SURGICAL HISTORY Procedure Laterality Date COLONOSCOPY FLX DX W/COLLJ SPEC WHEN PFRMD Colonoscopy COLONOSCOPY FLX DX W/COLLJ SPEC WHEN PFRMD 04/07/14 Colonoscopy COLONOSCOPY W/BIOPSY SINGLE/MULTIPLE 01/07/09 Acute colitis transverse and descending colon CONIZATION CERVIX W/WO D&C RPR KNIFE/LASER cone biopsy, JALIL III, Dr. Avina ENDOMETRIAL ABLATION WITH US GUIDANCE 2011 ESOPHAGOGASTRODUODENOSCOPY TRANSORAL DIAGNOSTIC 04/07/14 EGD HYSTEROSCOPY,W/ENDOMETRIAL ABLATION 04/2012 benign endometrium LIG/TRNSXJ FLP TUBE ABDL/VAG APPR UNI/BI Tubal ligation LIGATE FALLOPIAN TUBE LOW BACK DISK SURGERY NEUROPLASTY &/TRANSPOS MEDIAN NRV CARPAL TUNNE Bilateral 09/25/2018 Bilateral carpal tunnel release ALLERGIES Gabapentin, Penicillin G, and Penicillins MEDICATIONS ibuprofen (MOTRIN) 600 mg tablet TAKE 1 TABLET BY MOUTH THREE TIMES DAILY NEEDED FOR PAIN, TAKE WITH FOOD AND LOTS OF WATER permethrin (ELIMITE) 5 % cream Apply 1 application to affected area one time only for 1 dose. massage into skin from neck to feet, leave on 8-12hrs, wash off; Info: repeat 2wks if live mites persist. Itching may persist after effective treatment. acetaminophen (TYLENOL) 500 mg tablet TAKE 2 TABLETS BY MOUTH EVERY 8 HOURS NEEDED FOR PAIN (Patient not taking: Reported on 05/28/2023) amLODIPine (NORVASC) 10 mg tablet Take 10 mg by mouth once daily. (Patient not taking: Reported on 05/28/2023) cyclobenzaprine (FLEXERIL) 10 mg tablet TAKE 1 TABLET BY MOUTH TWICE DAILY NEEDED FOR MUSCLE SPASMS (Patient not taking: Reported on 05/28/2023) nystatin (MYCOSTATIN) powder apply one application topically daily as directed (Patient not taking: Reported on 05/28/2023) estradiol (ESTRACE) 0.01 % (0.1 mg/gram) vaginal cream Use 1 g vaginally as directed. A applicator full in vagina every night x 14 nights then twice a week. (Patient not taking: Reported on 05/28/2023) ibuprofen (MOTRIN) 800 mg tablet Take 1 tablet by mouth every 8 hours as needed. FOR PAIN. (Patient not taking: Reported on 04/14/2021 ) FAMILY HISTORY Problem Relation Age of Onset COPD Mother Thyroid Sister Fibromyalgia Sister Thyroid Sister Fibromyalgia Sister Thyroid Sister Diabetes Sister Hypertension Mother None Father does not go to Dr. Diabetes Sister Coronary Artery Disease Other none Breast Cancer Other great aunt Cancer Paternal Grandmother COPD Maternal Grandmother Social History Tobacco Use Smoking status: Every Day Packs/day: 0.50 Years: 20.00 Additional pack years: 0.00 Total pack years: 10.00 Types: Cigarettes Smokeless tobacco: Never Vaping Use Vaping Use: Never used Substance Use Topics Alcohol use: Yes Alcohol/week: 2.0 standard drinks of alcohol Types: 2 Cans of Beer (12oz) per week Comment: occationally Drug use: Yes Types: Marijuana Comment: no IVDA, snorting Objective Physical Exam Vitals and nursing note reviewed. Constitutional: Appearance: Normal appearance. Skin: General: Skin is warm and dry. Findings: Erythema and rash present. Neurological: Mental Status: She is alert. ASSESSMENT/PLAN: 1. Itching - ICD9: 698.9, ICD10: L29.9 - PERMETHRIN 5 % TOPICAL CREAM - use as directed - Follow-up with your PCP in 3-5 days if symptoms have not improved or sooner if symptoms worsen - Discussed red flags and need for immediate medical evaluation if any occur. - Discussed supportive care treatment with fluids, rest and analgesia. - Discussed expected course of illness Maire Blood APRN.[employer] documented in this encounter [facility] 04-23-2022 Note ORIGINAL EXAMINATION: TWO XRAY VIEWS OF THE CHEST04/23/2022 9:32 am XR Chest, two views COMPARISON: 10/21/2015 HISTORY: ORDERING SYSTEM PROVIDED HISTORY: Reason for Exam: Pre-admission testing, FINDINGS: The lungs show no consolidation, infiltrate or mass. Heart size is normal and mediastinal contours are within normal limits for age and projection. No pneumothorax, pleural fluid, or vascular congestion is seen. The bones show no acute process. Other findings include: Lungs are hyperexpanded with increased retrosternal clear space and mild flattening of diaphragm on the lateral view.. IMPRESSION: No acute cardio pulmonary process. Likely COPD. . Interpreted by: Calos Dunn MD Preliminary Report By: Calos Dunn MD Electronically signed By Calos Dunn MD Dictated Date: 04/23/2022 5:07:57 PM Prelim Date: 04/23/2022 5:08:36 PM Sign Date: 04/23/2022 5:08:36 PM Ordering Provider: [facility] 04-23-2022 Note ORIGINAL EXAMINATION: TWO XRAY VIEWS OF THE CHEST04/23/2022 9:32 am XR Chest, two views COMPARISON: 10/21/2015 HISTORY: ORDERING SYSTEM PROVIDED HISTORY: Reason for Exam: Pre-admission testing, FINDINGS: The lungs show no consolidation, infiltrate or mass. Heart size is normal and mediastinal contours are within normal limits for age and projection. No pneumothorax, pleural fluid, or vascular congestion is seen. The bones show no acute process. Other findings include: Lungs are hyperexpanded with increased retrosternal clear space and mild flattening of diaphragm on the lateral view.. IMPRESSION: No acute cardio pulmonary process. Likely COPD. . Interpreted by: Calos Dunn MD Preliminary Report By: Calos Dunn MD Electronically signed By Calos Dunn MD Dictated Date: 04/23/2022 5:07:57 PM Prelim Date: 04/23/2022 5:08:36 PM Sign Date: 04/23/2022 5:08:36 PM Ordering Provider: [facility] 03-21-2022 Note HNO ID: [id number] Author: Renee Browne Service: ? Author Type: Physician Type: Progress Notes Filed: 03/23/2022 6:41 AM Note Text: Initial Podiatric Office Visit: Chief Complaint: This 56 year old female who presents with chief complaint:nail deformity of b/l feet. Patient also complains of numbness of b/l HPI Patient presents to clinic for evaluation of b/l feet 1. She complains of long 2nd toenail of b/l feet. This causes her pain and at times, she trips over the nails. 2. She also complains of numbness of b/l feet. Patient denies history of diabetes. Patient has history of 3 ruptured disks of her lower back. Patient smokes 1/2 pack of cigarettes/day. PAIN EVALUATION 03/21/2022 1515 Pain Level: 10 Pain Location: Other: See Comment b/l foot pain Description: Other: See comment;Numbness electric shock Duration Amount of Time: 1 Duration Units: Years Frequency: Continuous Intervention/Comfort measure: Reposition;Relaxation;Medication ibuprofen/ tylenol/ flexril No results found for: HBA1C PCP: No primary care provider on file. PAST MEDICAL HISTORY Diagnosis Date - Essential hypertension 05/2021 - Stroke (HCC) 15 years ago Current Outpatient Medications Medication Sig - acetaminophen (TYLENOL) 500 mg tablet TAKE 2 TABLETS BY MOUTH EVERY 8 HOURS NEEDED FOR PAIN - amLODIPine (NORVASC) 10 mg tablet Take 10 mg by mouth once daily. - cyclobenzaprine (FLEXERIL) 10 mg tablet TAKE 1 TABLET BY MOUTH TWICE DAILY NEEDED FOR MUSCLE SPASMS - ibuprofen (MOTRIN) 600 mg tablet TAKE 1 TABLET BY MOUTH THREE TIMES DAILY NEEDED FOR PAIN, TAKE WITH FOOD AND LOTS OF WATER - nystatin (MYCOSTATIN) powder apply one application topically daily as directed No current facility-administered medications for this visit. ALLERGIES Allergen Reactions - Gabapentin GI Upset - Penicillin G Hives PAST SURGICAL HISTORY Procedure Laterality Date - LIGATE FALLOPIAN TUBE - LOW BACK DISK SURGERY FAMILY HISTORY Problem Relation Age of Onset - COPD Mother - Thyroid Sister - Fibromyalgia Sister - Thyroid Sister - Fibromyalgia Sister - Thyroid Sister - Diabetes Sister Social History Tobacco Use - Smoking status: Current Every Day Smoker Packs/day: 0.50 Years: 20.00 Pack years: 10.00 Types: Cigarettes - Smokeless tobacco: Never Used Vaping Use - Vaping Use: Not on file Substance Use Topics - Alcohol use: Yes Alcohol/week: 2.0 standard drinks Types: 2 Cans of Beer (12oz) per week Comment: occationally - Drug use: Yes Types: Marijuana REVIEW OF SYSTEMS GENERAL: Negative for Malaise, significant weight loss, fever RESPIRATORY: Negative for cough, wheezing and shortness of breath CARDIOVASCULAR: Negative for chest pain, leg swelling and palpitations GI: Negative for abdominal discomfort, blood in stools or black stools and change in bowel habits : Negative for dysuria, frequency and incontinence MUSCULOSKELETAL: Negative for joint pain or swelling, back pain, and muscle pain. SKIN: Negative for lesions, rash, and itching. HEMATOLOGY/LYMPHOLOGY Negative for prolonged bleeding, bruising easily, and swollen nodes. ENDOCRINE: Negative for cold or heat intolerance, polyuria, polydipsia and goiter. NEURO: negative Physical Exam: Constitutional: Pt is a well developed 56 year old female who is alert, oriented and cooperative Eyes: Following during examination. No redness or drainage. Respiratory: RR normal and nonlabored. Even breathing. No evidence of distress or shortness of breath. Psychology: Patient is engaged during conversation. Normal affect and mood. Does not appear depressed or anxious during encounter. Vascular: Dorsalis pedis and posterior tibial pulses nonpalpable but audible b/l Capillary Fill time < 5 seconds to digits 1-5 b/l Skin temperature warm to warm proximal to distal b/l Hair growth present to digits Neurological: intact light touch/epicritic sensation Vibratory sensation decreased b/l decreased protective sensation + significant neurological deficits Dermatological: Nails 1-5 b/l appear discolored, elongated, painful. Webspaces clean and dry 1-4 b/l. Skin appears well hydrated and supple. good color, texture, turgor. No open lesions present. No callosities present. Musculoskeletal/Orthopaedic: Patient has pain to palpation of ball of b/l feet Foot type is neutral structurally AJ ROM is full with knee extended and flexed 1st MPJ is full when loaded and no pain or crepitus are noted with ROM. MTJ, STJ are full and free of pain and crepitus. +5/5 muscle strength dorsiflexion, plantarflexion, inversion, eversion b/l Radiographs: 3 views b/l foot ordered March 21, 2022: I have personally reviewed and interpreted these XR myself: No acute fracture. Mild arthritis is present to right first mtpj ASSESSMENT: (G62.9) Neuropathy - (NOS) (primary encounter diagnosis) (D36.10) Neur (more content not included)... [facility] 03-21-2022 Note HNO ID: [id number] Author: Luisana Martinez LPN Service: ? Author Type: LICENSED NURSE Type: Progress Notes Filed: 03/23/2022 6:41 AM Note Text: AMB ROOMING INTAKE FLOWSHEET DATA Risk Screening Do you have concerns about personal safety or safety in the home?: No Pain Pain Level: 10 Pain Location: Other: See Comment (b/l foot pain) Description: Other: See comment, Numbness (electric shock) Duration Amount of Time: 1 Duration Units: Years Frequency: Continuous Intervention/Comfort measure: Reposition, Relaxation, Medication (ibuprofen/ tylenol/ flexril) Patient presents with: Left Foot - New, Pain, Numbness Right Foot - New, Pain, Numbness Luisana Martinez LPN [facility] 03-21-2022 Note HNO ID: [id number] Author: RT Rosibel(R) Service: Nuclear Medicine Author Type: Technologist Type: Progress Notes Filed: 03/21/2022 3:00 PM Note Text: Radiology Service Progress Note PATIENT NAME: Alecia Bowie DATE OF SERVICE: March 21, 2022 TIME: 2:52 PM PATIENT IDENTITY VERIFICATION COMPLETED USING TWO (2) IDENTIFIERS: Name and Date of confirmed by patient verbally. FALL SCREENING: Has the patient had 2 falls in the last year or 1 fall with injury or currently using an Ambulatory Assistive Device (Walker, Cane, Wheelchair, Crutches, etc.)? No PATIENT GENDER DATA: Female. status: : No status: NO. PATIENT RELEVANT IMPLANT DATA REVIEWED: Not Applicable RADIOLOGY DEPARTMENT: General X-ray: Exam(s) Completed: Lower Extremity X-Ray(s): Foot, Bilateral and Wt. Bearing PERIPHERAL IV DATA: Not applicable SIGNED BY: Magui Gil RT(R) March 21, 2022 2:52 PM [facility] 03-21-2022 Instructions Renee Browne - 03/21/2022 4:12 PM EDT Powerstep Original Full length. Can purchase at [employer] here in [place], [employer] in [place] or [place] [employer]. Also can find in [employer] in [facility]. Powersteps can also be purchased online, starting around $25.00 If you have a metatarsal or dancer pad for your feet apply the pad directly to the insole so you can interchange between your shoes. Find a shoe with a removable insole and take this out and replace with your powerstep insole. Always bring powersteps with you when shopping for shoes so that you can make sure that everything fits well together documented in this encounter [facility] 03-21-2022 History of Present illness Narrative Images from the original note were not included. Initial Podiatric Office Visit: Chief Complaint: This 56 year old female who presents with chief complaint:nail deformity of b/l feet. Patient also complains of numbness of b/l HPI Patient presents to clinic for evaluation of b/l feet 1. She complains of long 2nd toenail of b/l feet. This causes her pain and at times, she trips over the nails. 2. She also complains of numbness of b/l feet. Patient denies history of diabetes. Patient has history of 3 ruptured disks of her lower back. Patient smokes 1/2 pack of cigarettes/day. PAIN EVALUATION 03/21/2022 1515 Pain Level: 10 Pain Location: Other: See Comment b/l foot pain Description: Other: See comment;Numbness electric shock Duration Amount of Time: 1 Duration Units: Years Frequency: Continuous Intervention/Comfort measure: Reposition;Relaxation;Medication ibuprofen/ tylenol/ flexril No results found for: HBA1C PCP: No primary care provider on file. PAST MEDICAL HISTORY Diagnosis Date Essential hypertension 05/2021 Stroke (HCC) 15 years ago Current Outpatient Medications Medication Sig acetaminophen (TYLENOL) 500 mg tablet TAKE 2 TABLETS BY MOUTH EVERY 8 HOURS NEEDED FOR PAIN amLODIPine (NORVASC) 10 mg tablet Take 10 mg by mouth once daily. cyclobenzaprine (FLEXERIL) 10 mg tablet TAKE 1 TABLET BY MOUTH TWICE DAILY NEEDED FOR MUSCLE SPASMS ibuprofen (MOTRIN) 600 mg tablet TAKE 1 TABLET BY MOUTH THREE TIMES DAILY NEEDED FOR PAIN, TAKE WITH FOOD AND LOTS OF WATER nystatin (MYCOSTATIN) powder apply one application topically daily as directed No current facility-administered medications for this visit. ALLERGIES Allergen Reactions Gabapentin GI Upset Penicillin G Hives PAST SURGICAL HISTORY Procedure Laterality Date LIGATE FALLOPIAN TUBE LOW BACK DISK SURGERY FAMILY HISTORY Problem Relation Age of Onset COPD Mother Thyroid Sister Fibromyalgia Sister Thyroid Sister Fibromyalgia Sister Thyroid Sister Diabetes Sister Social History Tobacco Use Smoking status: Current Every Day Smoker Packs/day: 0.50 Years: 20.00 Pack years: 10.00 Types: Cigarettes Smokeless tobacco: Never Used Vaping Use Vaping Use: Not on file Substance Use Topics Alcohol use: Yes Alcohol/week: 2.0 standard drinks Types: 2 Cans of Beer (12oz) per week Comment: occationally Drug use: Yes Types: Marijuana REVIEW OF SYSTEMS GENERAL: Negative for Malaise, significant weight loss, fever RESPIRATORY: Negative for cough, wheezing and shortness of breath CARDIOVASCULAR: Negative for chest pain, leg swelling and palpitations GI: Negative for abdominal discomfort, blood in stools or black stools and change in bowel habits : Negative for dysuria, frequency and incontinence MUSCULOSKELETAL: Negative for joint pain or swelling, back pain, and muscle pain. SKIN: Negative for lesions, rash, and itching. HEMATOLOGY/LYMPHOLOGY Negative for prolonged bleeding, bruising easily, and swollen nodes. ENDOCRINE: Negative for cold or heat intolerance, polyuria, polydipsia and goiter. NEURO: negative Physical Exam: Constitutional: Pt is a well developed 56 year old female who is alert, oriented and cooperative Eyes: Following during examination. No redness or drainage. Respiratory: RR normal and nonlabored. Even breathing. No evidence of distress or shortness of breath. Psychology: Patient is engaged during conversation. Normal affect and mood. Does not appear depressed or anxious during encounter. Vascular: Dorsalis pedis and posterior tibial pulses nonpalpable but audible b/l Capillary Fill time < 5 seconds to digits 1-5 b/l Skin temperature warm to warm proximal to distal b/l Hair growth present to digits Neurological: intact light touch/epicritic sensation Vibratory sensation decreased b/l decreased protective sensation + significant neurological deficits Dermatological: Nails 1-5 b/l appear discolored, elongated, painful. Webspaces clean and dry 1-4 b/l. Skin appears well hydrated and supple. good color, texture, turgor. No open lesions present. No callosities present. Musculoskeletal/Orthopaedic: Patient has pain to palpation of ball of b/l feet Foot type is neutral structurally AJ ROM is full with knee extended and flexed 1st MPJ is full when loaded and no pain or crepitus are noted with ROM. MTJ, STJ are full and free of pain and crepitus. +5/5 muscle strength dorsiflexion, plantarflexion, inversion, eversion b/l Radiographs: 3 views b/l foot ordered March 21, 2022: I have personally reviewed and interpreted these XR myself: No acute fracture. Mild arthritis is present to right first mtpj ASSESSMENT: (G62.9) Neuropathy - (NOS) (primary encounter diagnosis) (D36.10) Neuroma (B35.1) Onychomycosis (M79.675) Pain in toe of left foot (M79.674) Pain in toe of right foot PLAN: 1. History and physical examination performed. 2. XR reviewed with patient and interpreted today 3. Discussed pain in b/l foot. Could be neuroma if her pain was in one isolated interspace but her pain appears to be widespread across multiple interspace. Cannot exclude early neuopathy. Discussed gabapentin. She states that she has tried neurontin in the past but did not tolerate. 4. Will try powerstep inserts. 5. We discussed the possible etiologies of discolored, dystrophic, and thickened nails including fungus, yeast, mold as well as in some instances, prior trauma, or mechanical causes such as repetitive microtrauma in shoe gear. We discussed topical medication for discolored toenails which has very low success but no major side effects. We discussed oral medication. Patient will need hepatic testing prior to use. Patient informed of risks associated with Lamisil. We discussed removal of toenails. Patient would like to proceed with debridement. Debridement of toenails 1-5 b/l was performed. Renee Browne DPM Podiatry [address] [facility] [address] Dept: [phone] Dept AMB ROOMING INTAKE FLOWSHEET DATA Risk Screening Do you have concerns about personal safety or safety in the home?: No Pain Pain Level: 10 Pain Location: Other: See Comment (b/l foot pain) Description: Other: See comment, Numbness (electric shock) Duration Amount of Time: 1 Duration Units: Years Frequency: Continuous Intervention/Comfort measure: Reposition, Relaxation, Medication (ibuprofen/ tylenol/ flexril) Patient presents with: Left Foot - New, Pain, Numbness Right Foot - New, Pain, Numbness Luisana Martinez LPN documented in this encounter [facility] 03-21-2022 History of Present illness Narrative Radiology Service Progress Note PATIENT NAME: Alecia Bowie DATE OF SERVICE: March 21, 2022 TIME: 2:52 PM PATIENT IDENTITY VERIFICATION COMPLETED USING TWO (2) IDENTIFIERS: Name and Date of confirmed by patient verbally. FALL SCREENING: Has the patient had 2 falls in the last year or 1 fall with injury or currently using an Ambulatory Assistive Device (Walker, Cane, Wheelchair, Crutches, etc.)? No PATIENT GENDER DATA: Female. status: : No status: NO. PATIENT RELEVANT IMPLANT DATA REVIEWED: Not Applicable RADIOLOGY DEPARTMENT: General X-ray: Exam(s) Completed: Lower Extremity X-Ray(s): Foot, Bilateral and Wt. Bearing PERIPHERAL IV DATA: Not applicable SIGNED BY: RT Rosibel(R) March 21, 2022 2:52 PM documented in this encounter [facility] 04-15-2021 History of Present illness Narrative Radiology Service Progress Note PATIENT NAME: Alecia Bowie DATE OF SERVICE: April 15, 2021 TIME: 11:54 AM PATIENT IDENTITY VERIFICATION COMPLETED USING TWO (2) IDENTIFIERS: Name and Date of confirmed by patient verbally. FALL SCREENING: Has the patient had 2 falls in the last year or 1 fall with injury or currently using an Ambulatory Assistive Device (Walker, Cane, Wheelchair, Crutches, etc.)? No PATIENT GENDER DATA: Female. status: : No status: NO. PATIENT RELEVANT IMPLANT DATA REVIEWED: Not Applicable RADIOLOGY DEPARTMENT: General X-ray: Exam(s) Completed: Lower Extremity X-Ray(s): Foot, Right and Wt. Bearing PERIPHERAL IV DATA: Not applicable SIGNED BY: RT Kathi(R) April 15, 2021 11:54 AM documented in this encounter [facility] 04-11-2012 History of Past i llness Narrative Problem Noted Date Diagnosed Date Resolved Date Menorrhagia 04/11/2012 01/21/2014 Lateral epicondylitis of right elbow 09/27/2011 01/21/2014 Thoracic or lumbosacral neur itis or radiculitis, unspecified 02/25/2009 01/21/2014 Routine general medical exam ination at a health care facility 01/12/2009 03/24/2012 Overview: 09/24/07 documented as of this encounter (statuses as of 05/29/2023) [facility]* Diagnosis Onset Date Resolution Status Chronic back pain chronic Hypertension chronic Right hip pain chronic [facility] Work Phone: Evaluation note* Diagnosis Pain Generalized pain [facility] Diagnosis Neuropathy - (NOS)- Primary Neuroma Other benign neoplasm of connective and other soft tissue of unspecified site Onychomycosis Dermatophytosis of nail Pain in toe of left foot Pain in limb Pain in toe of right foot Pain in limb [facility]* Diagnosis Onset Date Resolution Status Cervical radiculopathy chron ic Chronic neck pain chronic [facility] Work Phone: Evaluation note* Diagnosis Itching- Primary Unspecified pruritic disorder documented in [facility]* Diagnosis Encounter to establish care- Primary Other reasons for seeking consultation LUMBAR DISC DISPLACEMENT Displacement of lumbar intervertebral disc without myelopathy Hyperlipidemia LDL goal < 130 Other and unspecified hyperlipidemia CVA (cerebral infarction) Unspecified cerebral artery occlusion with cerebral infarction COLITIS NONINFECTIOUS ACUTE Other and unspecified noninfectious gastroenteritis and colitis Varicose veins- Primary Asymptomatic varicose veins Colitis Other and unspecified noninfectious gastroenteritis and colitis Allergy to pollen Allergic rhinitis due to pollen LUMBOSACRAL SPONDYLOSIS Lumbosacral spondylosis without myelopathy Shoulder pain, bilateral- Primary Pain in joint, shoulder region Bursitis Other bursitis disorders Tobacco use disorder Lumbosacral spondylosis without myelopathy Colitis Other and unspecified noninfectious gastroenteritis and colitis Arthralgia Pain in joint, site unspecified Foot pain, right Pain in limb [facility] Narrative No data available for this section [facility] Discharge instructions No data available for this section [facility] Progress note No data available for this section [facility] Reason for referral (narrative)* Diagnostic Procedure Only (Routine) - Closed Specialty Diagnoses / Procedures Referred By Contac t Referred To Contact XR IMAGING Diagnoses Pain Procedures XR FOOT GENERAL 3V AP/LAT/OBL BILATERAL RADEX FOOT COMPLETE MINIMUM 3 VIEWS Renee Browne [address] [place] [address] Xr Imaging Referral ID Status Reason Start Date Expiration Date V isits Requested Visits Authorized [id number] Closed Auto-Generate d Referral 03/06/2022 04/05/2023 1 1 [facility] for referral (narrative)* Diagnostic Procedure Only (Urgent) - Closed Specialty Diagnoses / Procedures Referred By Contac t Referred To Contact XR IMAGING Diagnoses Foot pain, right Procedures XR FOOT GENERAL 3V AP/LAT/OBL RT X-RAY FOOT MINIMUM 3 VIEWS Joyce Patel APRN.[employer] [address] [place] [address] [place] [address] Referral ID Status Reason Start Date Expiration Date V isits Requested Visits Authorized [id number] Closed Auto-Generate d Referral 04/14/2021 05/14/2022 1 1 [facility] for visit Narrative* Diagnostic Procedure Only (Routine) - Closed Specialty Diagnoses / Procedures Referred By Contac t Referred To Contact XR IMAGING Diagnoses Pain Procedures XR FOOT GENERAL 3V AP/LAT/OBL BILATERAL RADEX FOOT COMPLETE MINIMUM 3 VIEWS Renee Browne [address] [place] [address] Xr Imaging Referral ID Status Reason Start Date Expiration Date V isits Requested Visits Authorized [id number] Closed Auto-Generate d Referral 03/06/2022 04/05/2023 1 1 [facility] for visit Narrative* Diagnostic Procedure Only (Urgent) - Closed Specialty Diagnoses / Procedures Referred By Contac t Referred To Contact XR IMAGING Diagnoses Foot pain, right Procedures XR FOOT GENERAL 3V AP/LAT/OBL RT X-RAY FOOT MINIMUM 3 VIEWS Joyce Patel APRN.[employer] [address] [place] [address] [place] [address] Referral ID Status Reason Start Date Expiration Date V isits Requested Visits Authorized [id number] Closed Auto-Generate d Referral 04/14/2021 05/14/2022 1 1 [facility] Summary Purpose Family History No Family History Records FoundNo Family History Records FoundNo Family History Records Found No data available for this section No Family History Records FoundNo Family History Records Found Advance Directives Advance Directive Response Recorded Date/ Time Living Will No March 04, 2022 12:17am Power of Teacher Citizenship No March 04 12:17am Advance Directive Response Recorded Date/ Time Living Will No May 12 1:16am Power of Teacher Citizenship No May 12, 2022 1:16am Advance Directive Response Recorded Date/ Time Living Will No May 12 12:16am Power of Teacher Citizenship No May 12, 2022 12:16am Chief Complaint and Reason for Visit Chief Complaint [facility] ER F/U rash Reason for Visit Chronic back pain Hypertension Right hip pain Chief Complaint rash surgery clearance left ankle swelling, pain Reason for Visit Cervical radiculopat hy Chronic neck pain Chief Complaint leg injury Additional Source Comments INFORMATION SOURCE (unrecogn ized section and content) DATE CREATED AUTHOR 2021 [email or web address] ([place] DATE CREATED AUTHOR AUTHOR'S ORGANIZ ATION 03/28/2022 [facility] DATE CREATED AUTHOR AUTHOR'S ORGANIZ ATION 05/30/2023 [facility] DATE CREATED AUTHOR AUTHOR'S ORGANIZ ATION 07/24/2023 [facility] DATE CREATED AUTHOR AUTHOR'S ORGANIZ ATION 09/21/2023 [employer] ([place]) Goals (unrecognized section and content) Goals may be documented in a n alternate section No data available for this section No data available for this sectionGoals may be documented in an alternate sectionGoals may be documented in an alternate section No data available for this section Source Comments (unrecognize d section and content) In the event this informatio n is protected by the Federal Confidentiality of Alcohol and Drug Abuse Patient Records regulations: The Federal rules restrict any use of the information to criminally investigate or prosecute any alcohol or drug abuse patient.[facility] the event this information is protected by the Federal Confidentiality of Alcohol and Drug Abuse Patient Records regulations: The Federal rules restrict any use of the information to criminally investigate or prosecute any alcohol or drug abuse patient.[facility] the event this information is protected by the Federal Confidentiality of Alcohol and Drug Abuse Patient Records regulations: The Federal rules restrict any use of the information to criminally investigate or prosecute any alcohol or drug abuse patient.[facility] the event this information is protected by the Federal Confidentiality of Alcohol and Drug Abuse Patient Records regulations: The Federal rules restrict any use of the information to criminally investigate or prosecute any alcohol or drug abuse patient.[facility] Reason for Visit (unrecogniz ed section and content) Reason Comments New Pain Numbness Reason Comments feels like something is biting her left arm X 3-4 days Care Team (unrecognized sect ion and content) Care Team Personnel Name: FELICIANO JACOBSON MD Member Role: Primary Care Physician Address: Address: [address] [place] [address] [address] S[address] Care Team Related Persons Name: CRISTA, Name: DEVON GIFFORD Address: Home [address] [place] [address] Name: DEVON GIFFORD Address: Home [address] [place] [address] Name: DEVON GIFFORD Address: Home [address] [place] [address] Name: CASSY POTTS Care Team Personnel Name: FELICIANO JACOBSON MD Member Role: Primary Care Physician Address: Address: [address] [place] [address] [address] S[address]H [address] Care Team Related Persons Name: CRISTA, Name: DEVON GIFFORD Address: Home [address] [place] [address] Name: DEVON GIFFORD Address: Home [address] [place] [address] Name: DEVON GIFFORD Address: Home [address] [place] [address] Name: CASSY POTTS Care Teams (unrecognized sec tion and content) Team Status: Active Member Role Status Dates No Primary Care Physician Family Provider Active Dr. Feliciano Jacobson MD Primary Care Provider Active Team Status: Inactive Member Role Status Dates Dr. Feliciano Jacobson MD Primary Care Provider Active Dr. Raymond Michaels , Emergency Provider Active FOR RECORDS PERTAINING TO PATIENTS WHO ARE OR HAVE BEEN ENROLLED IN A CHEMICAL DEPENDENCY/SUBSTANCEABUSE PROGRAM, SOME INFORMATION MAY BE OMITTED. This clinical summary was aggregated from multiple sources. Caution should be exercised in using it in the provision of clinical care. This summary normalizes information from multiple sources, and as a consequence, information in this document may materially change the coding, format and clinical context of patient data. In addition, data may be omitted in some cases. CLINICAL DECISIONS SHOULD BE BASED ON THE PRIMARY CLINICAL RECORDS. [facility]. provides no warranty or guarantee of the accuracy or completeness of information in this document.
== END | disposition home or self-care (01) ==
PROVIDERS: PCP Internal Medicine; Referring Provider Student in an Organized Health Care Education/Training Program; Visit Provider Student in an Organized Health Care Education/Training Program
DX: M43.16 Spondylolisthesis, lumbar region (principal); M54.16 Radiculopathy, lumbar region; Z98.890 Other specified postprocedural states
CPT/HCPCS: 72158; A9575